=== PATIENT | male | born 1955 | race Caucasian/White ===

== ENCOUNTER 2016-05-01 11:03 | Inpatient (IN) | payer OTHER ==
[~2016-05-01] VITALS: Ht 172.7 cm; Wt 89.9 kg
[~2016-05-01 11:03] MED LIST: ALBINS INH; LEVA1.25 INH; OMEP40CA PO; PRED20TA PO; SNG10 PO; THEO1TAB14 PO; XOLAIR INJ
[2016-05-01 12:00] VITALS: BP 142/91; PULSE 116; TEMP 36.6; O2SAT 95; Ht 172.7 cm; Wt 89.9 kg
[2016-05-01] MEDS ORDERED: ALUMINUM/MAGNESIUM/SIMETH (MAALOX MAX) 30 ML UDC PO PRN (12:30)
[2016-05-01] MEDS ORDERED: ACETAMINOPHEN 325 MG TAB PO PRN (12:30)
[2016-05-01] MEDS ORDERED: ONDANSETRON INJ 2 MG/ML 2 ML VIAL IV PRN (12:30)
[2016-05-01] MEDS ORDERED: POLYETHYLENE (MIRALAX) 17 GM PACK PO PRN (12:30)
[2016-05-01] MEDS ORDERED: MAGNESIUM HYDROXIDE SUSP 30 ML UDC PO PRN (12:30)
[2016-05-01] MEDS ORDERED: LEVALBUTEROL 1.25MG/3ML NEB INH PRN (12:45)
[2016-05-01] MEDS ORDERED: LEVALBUTEROL 1.25MG/3ML NEB INH ONE (12:45)
[2016-05-01] MEDS ORDERED: HydrALAZINE HCL 20 MG/ML VIAL IV. PRN (12:45)
[2016-05-01] MEDS ORDERED: MOME200A INH (12:46)
[2016-05-01] MEDS ORDERED: LISI-461 PO (12:47)
[2016-05-01] MEDS ORDERED: TIOT1AER2 INH (12:51)
[2016-05-01] MEDS: METHYLPREDNISOLONE IV 40 MG in SYRINGE 0 ML IV SCH ×2 (13:13→18:36)
--- NOTE | 2016-05-01 13:52 | DIAGNOSTIC IMAGING REPORT ---
CHEST ONE VIEW PORTABLE CLINICAL HISTORY: Shortness of breath COMPARISON STUDY: February 07, 2016 FINDINGS: The cardiac and mediastinal contours are normal. There is no evidence of focal pulmonary consolidation. There is no evidence of failure. No pleural effusions are visualized.[ IMPRESSION: No active disease in the chest. Electronically signed by: Per Reid M.D. 05/01/2016 1:50 PM Dictated Date/Time: 05/01/2016 1:50 PM
--- NOTE | 2016-05-01 14:02 | History and Physical ---
History & Physical Date & Time of Service: May 01, 2016 at 13:53 Chief Complaint: Asthmatic Exacerbation Primary Care Physician: Reji Matt M.D. History of Present Illness Source: patient Mr. Adan is a 60 y/o male with a PMHx of Severe Persistent Extrinsic Asthma, Allergic Rhinitis, HTN, CAROLINE, and GERD who is a direct admission from Dr. Oh' s office due to persistent asthma exacerbation. He reports that prior to he has had well controlled asthma. Since he has had multiple Prednisone tapers and antibiotic treatment that did not seem to completely resolve his symptoms but was more manageable. During this month he notes increased nasal congestion and a productive cough. This cough was initially productive of green/yellow sputum and he was treated with a Z-usama and Prednisone taper that he finished today. He reports that his sputum is now clear but still reporting wheezing and MUÑIZ. 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 He has been using his Xopenex nebulizer nearly every hour without significant relief. He also has been utilizing his rescue inhaler 2-3 times at night. Associated intermittent nose bleeds and hemoptysis. He reports multiple sick contacts at work. Denies direct knowledge of triggers of his asthma but does report a mold/environmental allergy. He denies fever/chills, CP, N/V, abdominal pain, dysuria, constipation/ diarrhea. Social History Smoking Status: Never Smoker Smokeless Tobacco Use: No Alcohol Use: 1-2 glasses bourban Drug Use: none Immunizations History of Influenza Vaccine: No History of Tetanus Vaccine?: Yes History of Pneumococcal: Unknown History of Hepatitis B Vaccine: Yes Multi-Drug Resistant Organisms History of MDRO: No Allergies Coded Allergies: No Known Drug Allergy (Verified Allergy, Unknown, ., 03/09/10) Home Medications Scheduled Albuterol 0.083% Soln (Ventolin 0.083% Soln *), 1 AMP INH Q4HR PRN Levalbuterol Soln (Xopenex 1.25MG/3ML), 1.25 MG INH BID Lisinopril (Zestril), 10 MG PO DAILY Mometasone Furoate-Formoterol (Dulera 200/5 Mcg), 2 PUFFS INH BID Montelukast (Singulair *), 10 MG PO DHS Omeprazole (Prilosec), 40 MG PO DAILY Prednisone (Prednisone), 20 MG PO DIRECTED Theophylline Ext Rel (Tyrell-Dur Ext Rel), 300 MG PO BID Tiotropium [place] Monohydrate (Spiriva Respimat), 2 PUFFS INH QPM Review of Systems Constitutional: No chills, No fever Eyes: No worsening of vision ENT: + nasal symptoms, No sore throat, No trouble swallowing Respiratory: + cough, + dyspnea on exertion, + hemoptysis (minimal), + sputum ( green/yellow and now clear), + wheezing, No dyspnea at rest Cardiovascular: No chest pain Abdomen: No constipation, No diarrhea, No nausea, No pain, No vomiting Musculoskeletal: No calf pain, No swelling Genitourinary - Male: No dysuria Hematologic / Lymphatic: No abnormal bleeding/bruising, No clotting problems Integumentary: No rash Allergic / Immunologic: + environmental allergies Physical Exam Vital Signs Date Time Temp Pulse Resp B/P Pulse Ox O2 Delivery O2 Flow Rate FiO2 05/01/16 12:00 36.6 116 18 142/91 95 Room Air General Appearance: WD/WN, no apparent distress Head: normocephalic, atraumatic Eyes: sclerae normal ENT: hearing grossly normal, pharynx normal Neck: supple, no JVD, trachea midline Respiratory/Chest: no respiratory distress, no accessory muscle use, + wheezing (diffuse in all lung higgins; poor airway movement) Cardiovascular: no gallop, no murmur, + tachycardia Abdomen/GI: normal bowel sounds, non tender, soft Back: normal inspection, no CVA tenderness Extremities/Musculoskelatal: no calf tenderness, no pedal edema Neurologic/Psych: alert, oriented x 3 Skin: normal color, warm/dry Diagnostics Laboratory Results Results Past 24 Hours Test 05/01/16 12:34 05/01/16 12:39 Range/Units Diagnostic Radiology CHEST ONE VIEW PORTABLE CLINICAL HISTORY: Shortness of breath COMPARISON STUDY: February 07, 2016 FINDINGS: The cardiac and mediastinal contours are normal. There is no evidence of focal pulmonary consolidation. There is no evidence of failure. No pleural effusions are visualized.[ IMPRESSION: No active disease in the chest. Impression Assessment and Plan Mr. Adan is a 60 y/o male with a PMHx of Severe Persistent Extrinsic Asthma, Allergic Rhinitis, HTN, CAROLINE, and GERD who is a direct admission from Dr. Oh' s office due to persistent asthma exacerbation. Acute Asthma Exacerbation: Recent Z-Usama and Prednisone Taper - Will defer further antibiotic therapy at this time - CXR - image and report reviewed - no evidence of focal consolidation or fluid overload - Atrovent and Xopenex Q6H and PRN - Methylprednisone 40 mg IV Q6H - Theophylline 300 ER 300 mg BID - Singulair 10 mg HS - Flutter valve and incentive spirometry Glucose Control: - Due to frequent steroid use and current IV therapy will monitor BSG AC and HS - Can add insulin coverage if necessary Allergic Rhinitis: - Flonase nasal spray - Can consider allergy medication if symptoms more bothersome HTN: - Lisinopril 10 mg daily - denies chronic cough related to this medication - will monitor - Hydralazine 10 mg PRN GERD: - Protonix 40 mg daily as Prilosec interchange DVT Prophylaxis: - Lovenox 40 mg SC daily Code Status: - FULL RESUSCITATION Disposition: - Return home when medically stable Level of Care Med/Surg Advanced Directives Existing Living Will: No Existing Power of Equine Pharmacology Technician: No Resuscitation Status FULL RESUSCITATION VTE Prophylaxis VTE Risk Assessment Done? Y/N: Yes Risk Level: Moderate Given or contraindicated: Enoxaparin (Lovenox)SQ Reviewed: Pt Seen/Exam by Me, RN Notes, HO Notes, Prior Records History I agree with PA H&P Mr. Adan is a 60 y/o male with a PMHx of Severe Persistent Extrinsic Asthma, Allergic Rhinitis, HTN, CAROLINE, and GERD who is a direct admission from Dr. Oh' s office due asthma exacerbation Constitutional: denies: chills Respiratory: positive: wheezing, negative: cough Cardiovascular: denies chest pain Gastrointestinal/Abdominal: negative: abdominal pain Musculoskeletal: negative: back pain Neurological/Psych: negative: anxiety Hematologic/Lymphatic: negative: anemia General Appearance: WD/WN Eye Exam: bilateral eye normal inspection Ears, Nose, Throat: hearing grossly normal Neck: non-tender, supple Respiratory: chest non-tender, no accessory muscle use, wheezing Cardiovascular: regular rate, rhythm, no gallop Gastrointestinal: normal bowel sounds, soft Extremities: normal range of motion, normal inspection Neurologic/Psychiatric: alert, normal mood/affect Skin Characteristics: normal color Assessment/Plan Mr. Adan is a 60 y/o male with a PMHx of Severe Persistent Extrinsic Asthma, Allergic Rhinitis, HTN, CAROLINE, and GERD who is a direct admission from Dr. Oh' s office due to persistent asthma exacerbation. Acute Asthma Exacerbation: Recent Z-Usama and Prednisone Taper GMF CXR - image and report reviewed - no evidence of focal consolidation or fluid overload -Atrovent and Xopenex Q6H and PRN cont Methylprednisone 40 mg IV Q6H cont Theophylline 300 ER 300 mg BID cont Singulair 10 mg HS cont Flutter valve and incentive spirometry Allergic Rhinitis: cont Flonase nasal spray HTN: cont Lisinopril 10 mg daily - denies chronic cough related to this medication Hydralazine 10 mg PRN GERD: Protonix 40 mg daily as Prilosec outpt DVT Prophylaxis: Lovenox 40 mg SC daily FULL RESUSCITATION case discussed with DEANDRE Ayala time spent 50 min
[2016-05-01 14:29] VITALS: PULSE 88; O2SAT 97
[2016-05-01] MEDS: LEVALBUTEROL 1.25MG/3ML NEB INH SCH ×2 (14:29→19:29)
[2016-05-01] MEDS: IPRATROPIUM BROMIDE NEB SOLN 0.02% 2.5 ML VIAL INH SCH ×2 (14:29→19:28)
[2016-05-01 15:30] LABS: PROTHROMBIN TIME (PATIENT) 10.9 SECONDS (9.0-12.0)
[2016-05-01 15:47] LABS: BUN/CREATININE RATIO 14.1 (10-20); CALCIUM 8.8 mg/dl (8.5-10.1); CREATININE 1.5 mg/dl (0.60-1.40); MAGNESIUM 2.2 mg/dl (1.8-2.4); POTASSIUM 4.5 mmol/L (3.5-5.1)
[2016-05-01 15:57] VITALS: BP 149/96; PULSE 79; TEMP 36.9; O2SAT 94
[2016-05-01 16:00] VITALS: O2SAT 94
[2016-05-01] MEDS ORDERED: GLUCAGON FOR INJ 1 MG VIAL SQ PRN (16:00)
[2016-05-01] MEDS ORDERED: GLUCOSE 10 TABS/TUBE PO PRN (16:00)
[2016-05-01] MEDS ORDERED: GLUCOSE 40% GEL 15 GM TUBE PO PRN (16:00)
[2016-05-01] MEDS ORDERED: DEXTROSE 50% 50 ML SYR IV PRN (16:00)
[2016-05-01] MEDS: SODIUM CHLORIDE 0.9% 1000ML 1,000 ML IV SCH (16:05)
[2016-05-01] MEDS: ENOXAPARIN 40 MG/0.4 ML SYR SQ SCH (16:19)
[2016-05-01] MEDS ORDERED: INSULIN ASPART 100 UNITS/ML 3 ML PEN SC SCH (16:30)
[2016-05-01 17:47] LABS: BASO % 0.4 %; BASO ABS # 0.03 K/uL (0-0.2); COMPLETE YES; EOS % 0.3 %; HEMATOCRIT 44.2 % (42-52); IG% 1.2 %; LYMPH % 8.1 %; LYMPH ABS # 0.62 K/uL (1.2-3.4); MEAN CORPUSCULAR HEMOGLOBIN 30.1 pg (25-34); MEAN CORPUSCULAR HGB CONC 34.2 g/dl (32-36); MEAN PLATELET VOLUME 10.6 fL (7.4-10.4); PLATELET COUNT 224 K/uL (130-400); RED BLOOD COUNT 5.02 M/uL (4.7-6.1); WHITE BLOOD COUNT 7.61 K/uL (4.8-10.8)
[2016-05-01] MEDS: FLUTICASONE PROPIONATE NA SPR 16 GM BTL SCH (19:17)
[2016-05-01] MEDS: MONTELUKAST SOD 10 MG TAB PO SCH (19:17)
[2016-05-01] MEDS: THEOPHYLLINE 300MG EXTENDED REL TAB PO SCH (19:17)
[2016-05-01 19:29] VITALS: PULSE 80; O2SAT 96
[2016-05-01 23:40] VITALS: BP 144/88; PULSE 81; TEMP 37; O2SAT 96
[2016-05-02] VITALS (8 sets, daily range): BP systolic 151–176; BP diastolic 83–106; PULSE 87–98; TEMP 36.5–36.7; O2SAT 93–97
[2016-05-02] MEDS: METHYLPREDNISOLONE IV 40 MG in SYRINGE 0 ML IV SCH ×4 (01:24→19:29)
[2016-05-02] MEDS: SODIUM CHLORIDE 0.9% 1000ML 1,000 ML IV SCH (01:24)
[2016-05-02] MEDS: LEVALBUTEROL 1.25MG/3ML NEB INH SCH ×4 (02:46→20:48)
[2016-05-02] MEDS: IPRATROPIUM BROMIDE NEB SOLN 0.02% 2.5 ML VIAL INH SCH ×4 (02:46→20:48)
[2016-05-02] MEDS: THEOPHYLLINE 300MG EXTENDED REL TAB PO SCH ×2 (07:54→19:32)
[2016-05-02] MEDS: FLUTICASONE PROPIONATE NA SPR 16 GM BTL SCH ×2 (07:54→19:32)
[2016-05-02] MEDS: LISINOPRIL 10 MG TAB PO SCH (07:54)
[2016-05-02] MEDS: PANTOprazole SOD 40 MG TAB PO SCH (07:54)
[2016-05-02 09:06] LABS: HEMATOCRIT 43.6 % (42-52); MEAN CELL VOLUME 86.3 fL (80-100); MEAN CORPUSCULAR HEMOGLOBIN 30.5 pg (25-34); MEAN CORPUSCULAR HGB CONC 35.3 g/dl (32-36); PLATELET COUNT 220 K/uL (130-400); RED BLOOD COUNT 5.05 M/uL (4.7-6.1); WHITE BLOOD COUNT 8.21 K/uL (4.8-10.8)
[2016-05-02 09:25] LABS: BUN/CREATININE RATIO 20.3 (10-20); CALCIUM 8.7 mg/dl (8.5-10.1); CREATININE 1.2 mg/dl (0.60-1.40); MAGNESIUM 2.3 mg/dl (1.8-2.4); POTASSIUM 4.1 mmol/L (3.5-5.1)
[2016-05-02 09:28] LABS: ALB/GLOB RATIO 0.9 (0.9-2)
[2016-05-02] MEDS ORDERED: LORATADINE 10 MG TAB PO ONE (10:00)
--- NOTE | 2016-05-02 10:05 | Progress Note ---
Subjective Date of Service: May 02, 2016. (Collette Ayala PA-C) Date of Service: 05/02/16 improved (Rai Valdivia MD) Subjective Pt evaluation today including: conversation w/ patient, physical exam, chart review, lab review, review of studies, review of inpatient medication list Patient seen and evaluated. No acute events overnight. Reports some improvement in symptoms and feels that he is moving air better. Continues to have nasal congestion. Reports that he has received allergy injections in the past but doesn't use oral allergy meds. Verbalizes no other complaints. (Collette Ayala PA-C) Pt evaluation today including: conversation w/ patient, physical exam, chart review, review of studies, review of inpatient medication list (Rai Valdivia MD) Review of Systems Constitutional: No chills, No fever Respiratory: + cough, + dyspnea on exertion, + sputum, + wheezing, No dyspnea at rest Cardiac: No chest pain Abdomen: No nausea, No pain, No vomiting Male : No dysuria Skin: No rash (Collette Ayala PA-C) Constitutional: No fever ENT: No hearing loss Respiratory: + wheezing, No cough Cardiac: No chest pain Abdomen: No pain Male : No dysuria Neurologic: No memory loss Endo: No fatigue (Rai Valdivia MD) Medications Current Inpatient Medications Medications (Trade) Dose Ordered Sig/Becky Route Start Time Stop Time Status Last Admin Dose Admin Enoxaparin Sodium (Lovenox Inj) 40 mg DAILY@1600 SQ 05/01/16 16:00 05/31/16 15:59 05/01/16 16:19 40 MG Acetaminophen (Tylenol Tab) 650 mg Q4H PRN PO 05/01/16 12:30 05/31/16 12:29 Al Hydrox/Mg Hydrox/Simethicone (Maalox Max Susp) 15 ml Q4H PRN PO 05/01/16 12:30 05/31/16 12:29 Magnesium Hydroxide (Milk Of Magnesia Susp) 30 ml Q6H PRN PO 05/01/16 12:30 05/31/16 12:29 Polyethylene (Miralax Powder Packet) 17 gm DAILY PRN PO 05/01/16 12:30 05/31/16 12:29 Ondansetron HCl 4 mg 4 mg Q6H PRN IV 05/01/16 12:30 05/31/16 12:29 Methylprednisolone Sodium Succinate/ Syringe (Solu-Medrol IV/ Syringe) 0.64 ml @ 1.5 mls/min Q6H IV 05/01/16 13:00 05/31/16 12:59 05/02/16 06:24 1.5 MLS/MIN Ipratropium [place] (Atrovent 0.02% 0.5MG/2.5ML Neb) 0.5 mg Q6R INH 05/01/16 15:00 05/31/16 14:59 05/02/16 07:23 0.5 MG Levalbuterol (Xopenex 1.25MG/ 3ML Neb) 1.25 mg Q6R INH 05/01/16 15:00 05/31/16 14:59 05/02/16 07:23 1.25 MG Levalbuterol (Xopenex 1.25MG/ 3ML Neb) 1.25 mg Q2H PRN INH 05/01/16 12:45 05/31/16 12:44 Montelukast Sodium (Singulair Tab) 10 mg HS PO 05/01/16 22:00 05/31/16 21:59 05/01/16 19:17 10 MG Theophylline (Tyrell-Dur Extended Rel Tab) 300 mg BID PO 05/01/16 20:00 05/31/16 19:59 05/02/16 07:54 300 MG Pantoprazole Sodium (Protonix Tab) 40 mg QAM PO 05/02/16 08:00 06/01/16 07:59 05/02/16 07:54 40 MG Hydralazine HCl (HydrALAZINE INJ) 10 mg Q6 PRN IV. 05/01/16 12:45 05/31/16 12:44 Lisinopril (Zestril Tab) 10 mg DAILY PO 05/02/16 08:00 06/01/16 07:59 05/02/16 07:54 10 MG Fluticasone Propionate (Flonase Nasal [place]) 1 sprays BID NA 05/01/16 20:00 05/31/16 19:59 05/02/16 07:54 1 SPRAYS (Collette Ayala, PA-C) Objective Vital Signs Date Time Temp Pulse Resp B/P Pulse Ox O2 Delivery O2 Flow Rate FiO2 05/02/16 08:00 94 Room Air 05/02/16 07:47 36.5 88 20 176/106 94 Room Air 05/02/16 07:23 98 16 93 Room Air 05/02/16 02:46 89 16 97 Room Air 05/02/16 00:01 Room Air 05/01/16 23:40 37.0 81 18 144/88 96 Room Air 05/01/16 19:29 80 96 Room Air 05/01/16 19:15 Room Air 05/01/16 16:00 94 Room Air 05/01/16 15:57 36.9 79 18 149/96 94 Room Air 05/01/16 14:29 88 97 Room Air 05/01/16 12:00 36.6 116 18 142/91 95 Room Air (Collette Aayla PA-C) Physical Exam General Appearance: WD/WN, no apparent distress Eyes: sclerae normal ENT: hearing grossly normal Neck: supple, no JVD, trachea midline Respiratory/Chest: no respiratory distress (unlabored), no accessory muscle use , + wheezing (diffuse; expiratory), + pertinent finding (improvement in airflow in all lung higgins) Cardiovascular: regular rate, rhythm, no gallop, no murmur Abdomen: normal bowel sounds, non tender, soft Extremities: no pedal edema, no calf tenderness Neurologic/Psychiatric: alert, oriented x 3 Skin: normal color, warm/dry (Collette Ayala, PA-C) General Appearance: WD/WN, no apparent distress Eyes: normal inspection, EOMI ENT: pharynx normal Neck: supple Respiratory/Chest: chest non-tender, + wheezing Cardiovascular: regular rate, rhythm, no gallop Abdomen: non tender, no organomegaly Extremities: non-tender, normal inspection Neurologic/Psychiatric: no motor/sensory deficits, normal mood/affect Skin: normal color, warm/dry (Rai Valdivia MD) Laboratory Results Last 24 Hours Test 05/01/16 15:07 05/01/16 16:57 05/01/16 20:06 05/02/16 08:02 White Blood Count 7.61 K/uL Red Blood Count 5.02 M/uL Hemoglobin 15.1 g/dL Hematocrit 44.2 % Mean Corpuscular Volume 88.0 fL Mean Corpuscular Hemoglobin 30.1 pg Mean Corpuscular Hemoglobin Concent 34.2 g/dl Platelet Count 224 K/uL Mean Platelet Volume 10.6 fL Neutrophils (%) (Auto) 84.0 % Lymphocytes (%) (Auto) 8.1 % Monocytes (%) (Auto) 6.0 % Eosinophils (%) (Auto) 0.3 % Basophils (%) (Auto) 0.4 % Neutrophils # (Auto) 6.39 K/uL Lymphocytes # (Auto) 0.62 K/uL Monocytes # (Auto) 0.46 K/uL Eosinophils # (Auto) 0.02 K/uL Basophils # (Auto) 0.03 K/uL RDW Standard Deviation 42.4 fL RDW Coefficient of Variation 13.2 % Immature Granulocyte % (Auto) 1.2 % Immature Granulocyte # (Auto) 0.09 K/uL Prothrombin Time 10.9 SECONDS Prothromb Time International Ratio 1.0 Sodium Level 138 mmol/L Potassium Level 4.5 mmol/L Chloride Level 105 mmol/L Carbon Dioxide Level 25 mmol/L Anion Gap 8.0 mmol/L Blood Urea Nitrogen 21 mg/dl Creatinine 1.50 mg/dl Est Creatinine Clear Calc Drug Dose 59.7 ml/min Estimated GFR () 58.6 Estimated GFR (Non- 50.6 BUN/Creatinine Ratio 14.1 Random Glucose 193 mg/dl Calcium Level 8.8 mg/dl Magnesium Level 2.2 mg/dl Total Bilirubin 0.5 mg/dl Aspartate Amino Transf (AST/SGOT) 38 U/L Alanine Aminotransferase (ALT/SGPT) 46 U/L Alkaline Phosphatase 58 U/L Total Protein 7.5 gm/dl Albumin 3.7 gm/dl Globulin 3.8 gm/dl Albumin/Globulin Ratio 1.0 Bedside Glucose 153 mg/dl 190 mg/dl 137 mg/dl Test 05/02/16 08:45 White Blood Count 8.21 K/uL Red Blood Count 5.05 M/uL Hemoglobin 15.4 g/dL Hematocrit 43.6 % Mean Corpuscular Volume 86.3 fL Mean Corpuscular Hemoglobin 30.5 pg Mean Corpuscular Hemoglobin Concent 35.3 g/dl RDW Standard Deviation 41.0 fL RDW Coefficient of Variation 12.9 % Platelet Count 220 K/uL Mean Platelet Volume 10.0 fL Sodium Level 133 mmol/L Potassium Level 4.1 mmol/L Chloride Level 102 mmol/L Carbon Dioxide Level 23 mmol/L Anion Gap 8.0 mmol/L Blood Urea Nitrogen 24 mg/dl Creatinine 1.20 mg/dl Est Creatinine Clear Calc Drug Dose 74.7 ml/min Estimated GFR () 76.8 Estimated GFR (Non- 66.3 BUN/Creatinine Ratio 20.3 Random Glucose 165 mg/dl Calcium Level 8.7 mg/dl Magnesium Level 2.3 mg/dl Total Bilirubin 0.7 mg/dl Aspartate Amino Transf (AST/SGOT) 33 U/L Alanine Aminotransferase (ALT/SGPT) 46 U/L Alkaline Phosphatase 56 U/L Total Protein 7.5 gm/dl Albumin 3.5 gm/dl Globulin 4.0 gm/dl Albumin/Globulin Ratio 0.9 Theophylline Level 9 mcg/ml (Collette Ayala PA-C) Assessment and Plan Mr. Adan is a 60 y/o male with a PMHx of Severe Persistent Extrinsic Asthma, Allergic Rhinitis, HTN, CAROLINE, and GERD who is a direct admission from Dr. Oh' s office due to persistent asthma exacerbation. Acute Asthma Exacerbation: Recent Z-Usama and Prednisone Taper - Will defer further antibiotic therapy at this time - Atrovent and Xopenex Q6H and PRN - Methylprednisone 40 mg IV Q6H - Theophylline 300 ER 300 mg BID - Singulair 10 mg HS - Flutter valve and incentive spirometry Glucose Control: - Due to frequent steroid use and current IV therapy will monitor BSG AC and HS - Can add coverage if needed - will defer at this time Allergic Rhinitis: - Flonase nasal spray - Will add Loratadine 10 mg daily HTN: - Lisinopril 10 mg daily - denies chronic cough related to this medication - will monitor - Hydralazine 10 mg PRN GERD: - Protonix 40 mg daily as Prilosec interchange DVT Prophylaxis: - Lovenox 40 mg SC daily Code Status: - FULL RESUSCITATION Disposition: - Hopeful discharge in 1-2 days pending improvement in respiratory symptoms Continued [facility] stay due to: multiple IV medications needed Discharge planning: home (Collette Ayala PA-C) Mr. Adan is a 60 y/o male with a PMHx of Severe Persistent Extrinsic Asthma, Allergic Rhinitis, HTN, CAROLINE, and GERD who is a direct admission from Dr. Oh' s office due to persistent asthma exacerbation. Acute Asthma Exacerbation: Recent Z-Usama and Prednisone Taper cont GMF cont Atrovent and Xopenex Q6H and PRN cont Methylprednisone 40 mg IV Q6H cont theophylline 300 ER 300 mg BID cont Singulair 10 mg HS Allergic Rhinitis: cont Flonase nasal spray HTN: Lisinopril 10 mg daily GERD: Protonix 40 mg daily DVT Prophylaxis: Lovenox 40 mg SC daily Code Status: - FULL RESUSCITATION Disposition: - Hopeful discharge in 1-2 days pending improvement in respiratory symptoms (Rai Valdivia MD)
[2016-05-02] MEDS: ENOXAPARIN 40 MG/0.4 ML SYR SQ SCH (15:35)
[2016-05-02] MEDS: MONTELUKAST SOD 10 MG TAB PO SCH (21:53)
[2016-05-03] VITALS (7 sets, daily range): BP systolic 148–160; BP diastolic 85–95; PULSE 74–106; TEMP 36.5–36.9; O2SAT 94–97
[2016-05-03] MEDS: METHYLPREDNISOLONE IV 40 MG in SYRINGE 0 ML IV SCH ×2 (00:50→06:06)
[2016-05-03] MEDS: IPRATROPIUM BROMIDE NEB SOLN 0.02% 2.5 ML VIAL INH SCH ×4 (02:05→18:12)
[2016-05-03] MEDS: LEVALBUTEROL 1.25MG/3ML NEB INH SCH ×4 (02:05→18:12)
[2016-05-03] MEDS: THEOPHYLLINE 300MG EXTENDED REL TAB PO SCH ×2 (08:24→21:21)
[2016-05-03] MEDS: PANTOprazole SOD 40 MG TAB PO SCH (08:24)
[2016-05-03] MEDS: LORATADINE 10 MG TAB PO SCH (08:24)
[2016-05-03] MEDS: LISINOPRIL 10 MG TAB PO SCH (08:24)
[2016-05-03] MEDS: FLUTICASONE PROPIONATE NA SPR 16 GM BTL SCH ×2 (08:25→21:21)
[2016-05-03 08:37] LABS: BUN/CREATININE RATIO 20.5 (10-20); CREATININE 1.2 mg/dl (0.60-1.40); POTASSIUM 3.9 mmol/L (3.5-5.1)
[2016-05-03] MEDS: METHYLPREDNISOLONE IV 60 MG in SYRINGE 0 ML IV SCH ×2 (13:42→19:07)
--- NOTE | 2016-05-03 14:03 | Progress Note ---
Subjective Date of Service: May 03, 2016. (Collette Ayala PA-C) Date of Service: 05/03/16 agree with PA note still wheezing (Rai Valdivia MD) Subjective Pt evaluation today including: conversation w/ patient, physical exam, lab review, conversation w/ information services consultant (Aj Faith PA-C), review of inpatient medication list Patient seen and evaluated. No acute events overnight. Feels mild improvement in symptoms but not at baseline. Cough is minimall productive. Discussed with Aj Faith PA-C as past exacerbations were hard to control -- Had improvement with Xolair that he recently stopped 6 months ago -- Reports previous needs for bronchs due to mucus plugging and may be necessary (Collette Ayala PA-C) Pt evaluation today including: conversation w/ patient, physical exam, chart review, review of studies, review of inpatient medication list (Rai Valdivia MD) Review of Systems Constitutional: No chills, No fever ENT: + nasal symptoms Respiratory: + cough, + shortness of breath, + sputum (minimally productive) Cardiac: No chest pain Abdomen: No nausea, No pain, No vomiting Musculoskeletal: No calf pain, No swelling Male : No dysuria Skin: No itch, No rash (Collette Ayala PA-C) Constitutional: No fever ENT: No hearing loss Respiratory: + shortness of breath, + wheezing, No cough Abdomen: No pain Male : No dysuria Neurologic: No memory loss Psychiatric: No depression symptoms (Rai Valdivia MD) Objective Vital Signs Date Time Temp Pulse Resp B/P Pulse Ox O2 Delivery O2 Flow Rate FiO2 05/03/16 08:07 95 14 95 Room Air 05/03/16 08:00 94 Room Air 05/03/16 07:30 36.5 92 18 154/95 94 Room Air 05/03/16 00:04 36.9 74 20 148/94 96 Room Air 05/03/16 00:01 Room Air 05/02/16 20:48 90 14 96 Room Air 05/02/16 16:20 Room Air 05/02/16 15:27 36.7 87 20 157/83 95 Room Air 05/02/16 14:29 98 16 95 Room Air (Collette Ayala PA-C) Last 24 Hours Test 05/02/16 16:54 05/02/16 20:10 05/03/16 07:33 05/03/16 07:45 Bedside Glucose 165 mg/dl 176 mg/dl 132 mg/dl Sodium Level 133 mmol/L Potassium Level 3.9 mmol/L Chloride Level 101 mmol/L Carbon Dioxide Level 24 mmol/L Anion Gap 8.0 mmol/L Blood Urea Nitrogen 25 mg/dl Creatinine 1.20 mg/dl Est Creatinine Clear Calc Drug Dose 74.7 ml/min Estimated GFR () 76.8 Estimated GFR (Non- 66.3 BUN/Creatinine Ratio 20.5 Random Glucose 139 mg/dl Calcium Level 9.0 mg/dl Test 05/03/16 11:37 Bedside Glucose 130 mg/dl (Rai Valdivia MD) Physical Exam General Appearance: WD/WN, no apparent distress Eyes: sclerae normal ENT: hearing grossly normal Neck: supple, no JVD, trachea midline Respiratory/Chest: no respiratory distress, no accessory muscle use, + wheezing (expiratory; course breath sounds; improvement in airflow quality compared to previous exams) Cardiovascular: regular rate, rhythm, no gallop, no murmur Abdomen: normal bowel sounds, non tender, soft Extremities: no pedal edema, no calf tenderness Neurologic/Psychiatric: alert, oriented x 3 Skin: normal color, warm/dry (Collette Ayala, PA-C) General Appearance: WD/WN, no apparent distress Eyes: normal inspection, EOMI ENT: hearing grossly normal, pharynx normal Neck: supple, no JVD Respiratory/Chest: + wheezing Cardiovascular: regular rate, rhythm, no JVD Abdomen: normal bowel sounds, non tender Extremities: normal range of motion, normal inspection Neurologic/Psychiatric: alert, normal mood/affect Skin: warm/dry (Rai Valdivia MD) Laboratory Results Last 24 Hours Test 05/02/16 16:54 05/02/16 20:10 05/03/16 07:33 05/03/16 07:45 Bedside Glucose 165 mg/dl 176 mg/dl 132 mg/dl Sodium Level 133 mmol/L Potassium Level 3.9 mmol/L Chloride Level 101 mmol/L Carbon Dioxide Level 24 mmol/L Anion Gap 8.0 mmol/L Blood Urea Nitrogen 25 mg/dl Creatinine 1.20 mg/dl Est Creatinine Clear Calc Drug Dose 74.7 ml/min Estimated GFR () 76.8 Estimated GFR (Non- 66.3 BUN/Creatinine Ratio 20.5 Random Glucose 139 mg/dl Calcium Level 9.0 mg/dl Test 05/03/16 11:37 Bedside Glucose 130 mg/dl (Collette Ayala PA-C) Assessment and Plan Mr. Adan is a 60 y/o male with a PMHx of Severe Persistent Extrinsic Asthma, Allergic Rhinitis, HTN, CAROLINE, and GERD who is a direct admission from Dr. Oh' s office due to persistent asthma exacerbation. Acute Asthma Exacerbation: Recent Z-Usama and Prednisone Taper - Will defer further antibiotic therapy at this time - Atrovent and Xopenex Q6H and PRN - Increase to Methylprednisone 60 mg IV Q6H - Theophylline 300 ER 300 mg BID - Singulair 10 mg HS - Mucinex 1200 mg Q12H - Flutter valve and incentive spirometry and will add vibration vest Glucose Control: - Due to frequent steroid use and current IV therapy will monitor BSG AC and HS - Can add coverage if needed - will defer at this time - Can D/C BSG checks pending sugars after increase in steroid Allergic Rhinitis: - Flonase nasal spray - Loratadine 10 mg daily HTN: - Lisinopril 10 mg daily - denies chronic cough related to this medication - will monitor - Hydralazine 10 mg PRN GERD: - Protonix 40 mg daily as Prilosec interchange DVT Prophylaxis: - Lovenox 40 mg SC daily Code Status: - FULL RESUSCITATION Disposition: - Discussed case with Aj Faith PA-C who reports that his asthma exac. can be challenging -- H/O bronchoscopy needed for mucus plugging and may be necessary - Will utilize vibration vest and monitor with steroid increase - may need to involve Pulm as limited improvement noted. Continued [facility] stay due to: multiple IV medications needed Discharge planning: home (Collette Ayala PA-C) Mr. Adan is a 60 y/o male with a PMHx of Severe Persistent Extrinsic Asthma, Allergic Rhinitis, HTN, CAROLINE, and GERD who is a direct admission from Dr. Oh' s office due to persistent asthma exacerbation. Acute Asthma Exacerbation: Recent Z-Usama and Prednisone Taper cont Atrovent and Xopenex Q6H and PRN Increased to Methylprednisone 60 mg IV Q6H continue Theophylline 300 ER 300 mg BID Singulair 10 mg HS Mucinex 1200 mg Q12H Flutter valve and incentive spirometry and will add vibration vest Allergic Rhinitis: Flonase nasal spray Loratadine 10 mg daily HTN: Lisinopril 10 mg daily - denies chronic cough related to this medication - will monitor cont iv Hydralazine 10 mg PRN GERD: Protonix 40 mg daily DVT Prophylaxis: Lovenox 40 mg SC daily FULL RESUSCITATION Discussed case with Aj Faith PA-C who reports that his asthma exac. can be challenging bronchoscopy may be needed for mucus plugging and may be necessary if does not improve Will utilize vibration vest and monitor with steroid increase (Rai Valdivia MD)
[2016-05-03] MEDS: ENOXAPARIN 40 MG/0.4 ML SYR SQ SCH (15:59)
[2016-05-03] MEDS: GUAIFENESIN 600 MG TABCR PO SCH (21:20)
[2016-05-03] MEDS: MONTELUKAST SOD 10 MG TAB PO SCH (21:20)
[2016-05-04 00:14] VITALS: BP 144/88; PULSE 74; TEMP 36.4; O2SAT 94
[2016-05-04] MEDS: METHYLPREDNISOLONE IV 60 MG in SYRINGE 0 ML IV SCH ×4 (00:53→20:07)
[2016-05-04] MEDS: IPRATROPIUM BROMIDE NEB SOLN 0.02% 2.5 ML VIAL INH SCH ×4 (01:45→19:15)
[2016-05-04] MEDS: LEVALBUTEROL 1.25MG/3ML NEB INH SCH ×4 (01:45→19:15)
[2016-05-04 07:26] VITALS: BP 152/55; PULSE 98; TEMP 36.4; O2SAT 96
[2016-05-04 07:44] LABS: HEMATOCRIT 45.9 % (42-52); MEAN CELL VOLUME 86.4 fL (80-100); MEAN CORPUSCULAR HEMOGLOBIN 30.5 pg (25-34); MEAN CORPUSCULAR HGB CONC 35.3 g/dl (32-36); MEAN PLATELET VOLUME 10.6 fL (7.4-10.4); PLATELET COUNT 286 K/uL (130-400); RED BLOOD COUNT 5.31 M/uL (4.7-6.1); WHITE BLOOD COUNT 22.35 K/uL (4.8-10.8)
[2016-05-04 07:48] VITALS: PULSE 96; O2SAT 96
[2016-05-04] MEDS: PANTOprazole SOD 40 MG TAB PO SCH (07:59)
[2016-05-04] MEDS: THEOPHYLLINE 300MG EXTENDED REL TAB PO SCH ×2 (07:59→20:08)
[2016-05-04] MEDS: GUAIFENESIN 600 MG TABCR PO SCH ×2 (08:00→21:41)
[2016-05-04] MEDS: LISINOPRIL 10 MG TAB PO SCH (08:00)
[2016-05-04] MEDS: FLUTICASONE PROPIONATE NA SPR 16 GM BTL SCH ×2 (08:00→20:08)
[2016-05-04] MEDS: LORATADINE 10 MG TAB PO SCH (08:18)
[2016-05-04 08:19] LABS: CREATININE 1.3 mg/dl (0.60-1.40)
--- NOTE | 2016-05-04 10:03 | Progress Note ---
Subjective Date of Service: May 04, 2016. (Collette Ayala PA-C) Subjective Pt evaluation today including: conversation w/ patient, physical exam, chart review, lab review, review of inpatient medication list Patient seen and evaluated. Ambulating the halls and does not look in resp. distress. Reports limited improvement in overall symptoms. Feels secretions have loosened up some. Remains to have course breath sounds and expiratory wheezing. Plan for bronchoscopy tomorrow AM. (Collette Ayala PA-C) Review of Systems Constitutional: No chills, No fever Respiratory: + cough, + dyspnea on exertion, + wheezing, No sputum Cardiac: No chest pain Abdomen: No nausea, No pain, No vomiting Male : No dysuria Endo: No fatigue Skin: No rash (Collette Ayala PA-C) Medications Current Inpatient Medications Medications (Trade) Dose Ordered Sig/Becky Route Start Time Stop Time Status Last Admin Dose Admin Enoxaparin Sodium (Lovenox Inj) 40 mg DAILY@1600 SQ 05/01/16 16:00 05/31/16 15:59 05/03/16 15:59 40 MG Acetaminophen (Tylenol Tab) 650 mg Q4H PRN PO 05/01/16 12:30 05/31/16 12:29 Al Hydrox/Mg Hydrox/Simethicone (Maalox Max Susp) 15 ml Q4H PRN PO 05/01/16 12:30 05/31/16 12:29 Magnesium Hydroxide (Milk Of Magnesia Susp) 30 ml Q6H PRN PO 05/01/16 12:30 05/31/16 12:29 Polyethylene (Miralax Powder Packet) 17 gm DAILY PRN PO 05/01/16 12:30 05/31/16 12:29 Ondansetron HCl (Zofran Inj) 4 mg Q6H PRN IV 05/01/16 12:30 05/31/16 12:29 Ipratropium [place] (Atrovent 0.02% 0.5MG/2.5ML Neb) 0.5 mg Q6R INH 05/01/16 15:00 05/31/16 14:59 05/04/16 07:48 0.5 MG Levalbuterol (Xopenex 1.25MG/ 3ML Neb) 1.25 mg Q6R INH 05/01/16 15:00 05/31/16 14:59 05/04/16 07:48 1.25 MG Levalbuterol (Xopenex 1.25MG/ 3ML Neb) 1.25 mg Q2H PRN INH 05/01/16 12:45 05/31/16 12:44 Montelukast Sodium (Singulair Tab) 10 mg HS PO 05/01/16 22:00 05/31/16 21:59 05/03/16 21:20 10 MG Theophylline ([place]rell-Dur Extended Rel Tab) 300 mg BID PO 05/01/16 20:00 05/31/16 19:59 05/04/16 07:59 300 MG Pantoprazole Sodium (Protonix Tab) 40 mg QAM PO 05/02/16 08:00 06/01/16 07:59 05/04/16 07:59 40 MG Hydralazine HCl (HydrALAZINE INJ) 10 mg Q6 PRN IV. 05/01/16 12:45 05/31/16 12:44 Lisinopril (Zestril Tab) 10 mg DAILY PO 05/02/16 08:00 06/01/16 07:59 05/04/16 08:00 10 MG Fluticasone Propionate (Flonase Nasal [place]) 1 sprays BID NA 05/01/16 20:00 05/31/16 19:59 05/04/16 08:00 1 SPRAYS Loratadine 10 mg 10 mg QAM PO 05/03/16 08:00 06/02/16 07:59 05/04/16 08:18 10 MG Methylprednisolone Sodium Succinate/ Syringe (Solu-Medrol IV/ Syringe) 0.96 ml @ 1.5 mls/min Q6H IV 05/03/16 13:00 06/02/16 12:59 05/04/16 06:26 1.5 MLS/MIN Guaifenesin 1200 mg 1,200 mg Q12 PO 05/03/16 21:00 06/02/16 20:59 05/04/16 08:00 1,200 MG Methylprednisolone Sodium Succinate/ Syringe (Solu-Medrol IV/ Syringe) 1.28 ml @ 1.5 mls/min ONE ONCE IV 05/05/16 07:00 05/05/16 07:01 UNV (Collette Ayala PA-C) Objective Vital Signs Date Time Temp Pulse Resp B/P Pulse Ox O2 Delivery O2 Flow Rate FiO2 05/04/16 07:48 96 16 96 Room Air 05/04/16 07:26 36.4 98 18 152/55 96 Room Air 05/04/16 00:14 36.4 74 20 144/88 94 Room Air 05/04/16 00:10 Room Air 05/03/16 18:12 102 16 96 Room Air 05/03/16 16:15 Room Air 05/03/16 15:40 36.6 106 20 160/85 95 Room Air 05/03/16 15:04 82 16 97 Room Air (Collette Ayala PA-C) Physical Exam General Appearance: WD/WN, no apparent distress Eyes: sclerae normal ENT: hearing grossly normal Neck: supple, no JVD, trachea midline Respiratory/Chest: no respiratory distress, no accessory muscle use, + wheezing (course breath sounds with expiratory wheezing more appreciated compared to previous exams; air flow quality continues to improve) Cardiovascular: regular rate, rhythm, no gallop, no murmur Abdomen: normal bowel sounds, non tender, soft Extremities: no pedal edema, no calf tenderness Neurologic/Psychiatric: alert, oriented x 3 Skin: normal color, warm/dry (Collette Ayala PA-C) Laboratory Results Last 24 Hours Test 05/03/16 11:37 05/03/16 16:46 05/03/16 20:28 05/04/16 07:21 Bedside Glucose 130 mg/dl 164 mg/dl 204 mg/dl White Blood Count 22.35 K/uL Red Blood Count 5.31 M/uL Hemoglobin 16.2 g/dL Hematocrit 45.9 % Mean Corpuscular Volume 86.4 fL Mean Corpuscular Hemoglobin 30.5 pg Mean Corpuscular Hemoglobin Concent 35.3 g/dl RDW Standard Deviation 40.4 fL RDW Coefficient of Variation 12.7 % Platelet Count 286 K/uL Mean Platelet Volume 10.6 fL Creatinine 1.30 mg/dl Est Creatinine Clear Calc Drug Dose 68.9 ml/min Estimated GFR () 69.7 Estimated GFR (Non- 60.1 Test 05/04/16 08:13 Bedside Glucose 137 mg/dl (Collette Ayala PA-C) Assessment and Plan Mr. Adan is a 60 y/o male with a PMHx of Severe Persistent Extrinsic Asthma, Allergic Rhinitis, HTN, CAROLINE, and GERD who is a direct admission from Dr. Oh' s office due to persistent asthma exacerbation. Acute Asthma Exacerbation: Recent Z-Usama and Prednisone Taper as Outpatient - Atrovent and Xopenex Q6H and PRN - Methylprednisone 60 mg IV Q6H - Theophylline 300 ER 300 mg BID - Singulair 10 mg HS - Mucinex 1200 mg Q12H - Flutter valve and incentive spirometry and will add vibration vest - Consult Pulm - Bronchoscopy tomorrow - will place NPO at midnight and Solu- Medrol 80 mg IV x 1 dose in AM Glucose Control: - Due to frequent steroid use and current IV therapy will monitor BSG AC and HS - Can add coverage if needed - will defer at this time - Can D/C BSG checks pending sugars after increase in steroid Allergic Rhinitis: - Flonase nasal spray - Loratadine 10 mg daily HTN: - Lisinopril 10 mg daily - denies chronic cough related to this medication - will monitor - Hydralazine 10 mg PRN GERD: - Protonix 40 mg daily as Prilosec interchange DVT Prophylaxis: - Lovenox 40 mg SC daily Code Status: - FULL RESUSCITATION Disposition: - Discussed case with Aj Faith PA-C (05/03) who reports that his asthma exac. can be challenging -- H/O bronchoscopy needed for mucus plugging and may be necessary - Home in 1-2 days pending on bronchoscopy tolerance Continued [facility] stay due to: multiple IV medications needed Discharge planning: home (Collette Ayala PA-C) ATTENDING ATTESTATION I have seen and examined patient this am. I have discussed plan of care in detail with MARISOL and agree with plan as stated above. Patient continues to have congestion and rhonchi Vitals-reviewed GEN- NAD CVS-RRR RESP-+ rhonchi and wheezes ABD-CTA EXT- no edema Labs-reviewed Asthma Exacerbation -pt known to pulmonary service has required bronchs in past, plan for bronch dom as I spoke with Dr. Oh this am, NPO at midnight, solumedrol 80 IV before bronch (Collette Harden MD)
[2016-05-04 13:54] VITALS: PULSE 104; O2SAT 96
[2016-05-04 16:00] VITALS: BP 157/93; PULSE 78; TEMP 36.7; O2SAT 95
[2016-05-04] MEDS: ENOXAPARIN 40 MG/0.4 ML SYR SQ SCH (16:38)
[2016-05-04 19:15] VITALS: PULSE 99; O2SAT 97
[2016-05-04] MEDS: MONTELUKAST SOD 10 MG TAB PO SCH (21:40)
[2016-05-05] VITALS (25 sets, daily range): BP systolic 138–170; BP diastolic 78–112; PULSE 69–94; TEMP 36.4–36.8; O2SAT 92–98
[2016-05-05] MEDS: METHYLPREDNISOLONE IV 60 MG in SYRINGE 0 ML IV SCH ×3 (00:57→18:39)
[2016-05-05] MEDS: IPRATROPIUM BROMIDE NEB SOLN 0.02% 2.5 ML VIAL INH SCH ×4 (01:41→19:07)
[2016-05-05] MEDS: LEVALBUTEROL 1.25MG/3ML NEB INH SCH ×4 (01:41→19:07)
[2016-05-05] MEDS ORDERED: METHYLPREDNISOLONE IV 80 MG in SYRINGE 0 ML IV ONE (07:00)
[2016-05-05] MEDS: THEOPHYLLINE 300MG EXTENDED REL TAB PO SCH ×3 (08:00→20:40)
[2016-05-05] MEDS: PANTOprazole SOD 40 MG TAB PO SCH ×2 (08:00→08:34)
[2016-05-05] MEDS: LORATADINE 10 MG TAB PO SCH ×2 (08:00→08:33)
[2016-05-05] MEDS: GUAIFENESIN 600 MG TABCR PO SCH ×3 (08:33→20:40)
[2016-05-05] MEDS: LISINOPRIL 10 MG TAB PO SCH ×2 (08:35→15:10)
[2016-05-05] MEDS: FLUTICASONE PROPIONATE NA SPR 16 GM BTL SCH ×2 (08:35→20:39)
--- NOTE | 2016-05-05 09:51 | History & Physical Bridge Note ---
H&P Re-Evaluation Bridge Note: I have examined the patient, reviewed the History & Physical and in the interval since the performance of the History & Physical I have noted the following changes of clinical significance: No changes noted
--- NOTE | 2016-05-05 09:52 | Procedure Note ---
Pre-Mod Sedation Assessment General Date of Moderate Sedation: May 05, 2016. Vital Signs: Vital Signs Past 12 Hours Date Time Temp Pulse Resp B/P Pulse Ox O2 Delivery O2 Flow Rate FiO2 05/05/16 07:53 36.7 90 18 158/92 93 Room Air 05/05/16 07:08 82 18 94 Room Air 05/05/16 01:41 69 18 96 Room Air 05/05/16 00:31 Room Air 05/05/16 00:00 36.5 83 18 145/95 95 Room Air Pre-Sedation Airway Assessment Oral Cavity: WNL Smoking Status: Never Smoker Mallampati Classification: Class II ASA Classification: Class II Procedure Planning Contraindications-for Mod Sed: None Yes Notes The planned sedation has been discussed with the patient and consent obtained. I have identified the patient, determined the appropriateness of sedation and have assessed the patient immediately prior to the procedure. All medicine(s) and interventions are by my order.
[2016-05-05] MEDS ORDERED: NURSING VERBAL MED ORDER ONE ×2 (10:15→11:45)
[2016-05-05] MEDS ORDERED: LEVALBUTEROL 1.25MG/3ML NEB INH ONE (10:30)
[2016-05-05] MEDS ORDERED: IPRATROPIUM BROMIDE NEB SOLN 0.02% 2.5 ML VIAL INH PRN (10:30)
--- NOTE | 2016-05-05 12:11 | PULMONARY CONSULTATION ---
DATE OF CONSULTATION: 05/04/2016 REASON FOR CONSULTATION: Chronic persistent asthma with hospitalizations. HISTORY OF PRESENT ILLNESS: A 60-year-old white female was admitted onto the [facility] hospitalist service by Collette Ayala, physician assistant track and field coach and Dr. Rai Valdivia. The patient's primary physician is Dr. Reji Matt and we have seen the patient in our pulmonary office for many years for chronic persistent extrinsic asthma. He also has a history of allergic rhinitis, hypertension, mild obstructive sleep apnea and GERD. He was a direct admission from my office after having seen Ailyn Delcid/physician assistant track and field coach for acute exacerbation. He states that prior to his asthma had been reasonably well controlled, but he has been on multiple courses of prednisone with taper and antibiotics without complete resolution of the symptoms. 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 Tamez for allergy evaluation. Dr. Tamez initially saw patient in consultation on 04/01/2010. At that time, the patient was 54 and did not give a previous history of allergic rhinitis or asthma symptoms. He did state that in his 20s he did have intermittent wheezing and chest congestion, but never required medication. In his 30s he started to use an inhaler p.r.n. as the symptoms worsened with exercise and as he progressed into his fifth decade his symptoms became more problematic to eventual daily basis. He had initially been tried on Singulair, Flovent and Advair and I saw him in December 2009. CAT scan of the chest performed at that time showed no acute findings. Lab studies showed at least 25% peripheral eosinophilia, the sed rate of 22 and IgE level of 96, which juany greater than 200 at its zenith. Fiberoptic bronchoscopy was done revealing although the patient did have some degree of mucoid impaction. He lives in a single family home with forced air heat. They no longer have a dog who had been there for 14 years. No significant environmental problems noted and he has in the past repaired a nonfunctioning gutter. His bedroom was carpeted, he sleeps on a mattress bed. He was diagnosed with obstructive sleep apnea in 2004 with index apnea/hypopnea index of 12.6, had been on nasal CPAP but no longer utilizing this therapy as most recent sleep study done without CPAP showed only a mild index without significant nocturnal desaturation. Problematic for him has been his ability to sleep at night and he is awakened with severe chest heaviness and shortness of breath requiring the use of metered-dose inhaler quite frequently. Percutaneous skin testing with histamine and saline control showed a 2+ reaction to both species of dust mite and was negative for other tests and antigens. His intradermal testing was negative to mold. He does have dust mite sensitivity, but did not have a history compatible with [place] vasculitis, consideration for allergen immunotherapy was given but not enacted on. He did try to reduce environmental exposure. He was introduced to Xolair therapy which he took monthly, which he believed helped cut down on his exacerbations, but has not been on the therapy for 6 months. He states he was given an equivocal response by Dr. Tamez on whether therapy was necessary at that point in time. He has been on frequent courses of prednisone although his peripheral eosinophilia is much less prominent, he noted it may be the result of his chronic steroid usage. He remains on Singulair. CAT scan of the chest last done in 2010 showed no acute abnormalities. Chest x-ray done on 02/07/2016 showed no acute infiltrates. CAT scan of the sinuses done in 2010 showed no air fluid levels, etc. PFTs done in June 2014 showed a forced vital capacity of 4.67 liters and 99% of predicted with an FEV1 of 3.7 mL 102% of predicted, with a ratio of 79%. No significant response to bronchodilator was shown. Lung volume measurement was not carried out. Echocardiogram done in 2010 showed grade 1 diastolic dysfunction with normal LV function, no sign of pulmonary hypertension. There is no smoking history or significant environmental history noted. He has received hepatitis B vaccination along with tetanus vaccination, but did not receive flu vaccination with unknown pneumococcal vaccination. He has been placed on Protonix and lisinopril daily for blood pressure response along with Flonase nasal spray, theophylline 300 mg ER b.i.d., methylprednisolone nebulized with Atrovent and Xopenex q. 6 hours and flutter valve as well as incentive spirometry and now a vibration vest. He states he is unable to bring up significant phlegm, despite all these medications and efforts. I was asked to see patient in consultation. He has been on a nebulizer with Brovana 15 mcg b.i.d. in the past along with daily Prilosec 20 mg p.o. b.i.d. and previous Xolair injections monthly along with q Qvar 80 mcg p.o. b.i.d. The patient is scheduled for bronchoscopic evaluation. Details of past medical history, medications, family and social history I refer you to current and past records. PHYSICAL EXAMINATION: GENERAL: Reveals a well-developed, well-nourished, mildly cushingoid white male in no obvious distress at rest but dyspneic after walking 20 feet in the hallway with me and sitting down. CURRENT VITAL SIGNS: Stable. SKIN: Without lesion. HEENT: Atraumatic, normocephalic. PERRLA. LUNGS: Coarse wheezes diffusely, especially at the right base. CARDIAC: Regular rate and rhythm. No murmurs or gallops. PMI nondisplaced. ABDOMEN: Soft, protuberant. No evidence of hepatosplenomegaly. EXTREMITIES: No significant pedal edema, clubbing or cyanosis. NEUROLOGIC: Intact. No lateralizing signs. LABORATORY DATA: As noted. OVERALL ASSESSMENT: A 60-year-old white male with severe persistent extrinsic asthma, allergic rhinitis, hypertension, mild obstructive sleep apnea, and gastroesophageal reflux disease with persistent exacerbations requiring admission and symptomatic since Thanksgiving refractory to aggressive outpatient as well as inpatient steroid therapy with antibiotic utilization and vigorous pulmonary toilet. I offered patient bronchoscopy with bronchoalveolar lavage as when this was done initially several years ago he felt some relief and I think at this point I think we need to be more aggressive with our approach as patient is clearly not improving. This may be the result of a viral or influenza infection that has left his airways extremely bronchospastic and poorly responsive to the above-mentioned aggressive measures. I do think patient long-term needs to go back on his Xolair therapy and the patient may very well be a candidate for a IL-5 therapy because of previous eosinophilia and poor response to current therapy. Will schedule bronchoscopic evaluation tomorrow with a prophylactic IV Solu-Medrol dose done 1 hour before along with aerosolized bronchodilator.
[2016-05-05] MEDS ORDERED: SODIUM CHLORIDE 0.9% 1000ML 1,000 ML IV SCH (12:15)
[2016-05-05] MEDS ORDERED: FENTANYL CITRATE INJ 50 MCG/1 ML 2 ML VIAL IV ONE (12:15)
[2016-05-05] MEDS ORDERED: MIDAZOLAM HCL 5 MG/ML 1 ML VIAL IV ONE (12:15)
--- NOTE | 2016-05-05 12:35 | OPERATIVE REPORT ---
DATE OF OPERATION: 05/05/2016 PROCEDURE: Fiberoptic bronchoscopy with bronchoalveolar lavage. INDICATIONS: Chronic persistent asthma/persistent allergic rhinitis, refractory to aggressive outpatient and inpatient management. ANESTHESIA PREOPERATIVELY: None. ANESTHESIA DURING PROCEDURE: 8 mg IV Versed, 100 mcg IV fentanyl, 20 mL 2% Xylocaine spray above and below the cords, 4% viscous Xylocaine intranasally. Prior to the procedure the patient received 80 mg IV Solu-Medrol 1 hour before and a nebulizer treatment of Xopenex and Atrovent 30 minutes before the procedure. The patient arrived in the bronchoscopy suite. A formal timeout was enacted. The patient was then administered 8 mg IV Versed and 100 mcg IV fentanyl. 4% viscous Xylocaine was used intranasally and 20 mL of 2% Xylocaine spray was used above and below the cords for localized analgesia. The fiberoptic bronchoscope was inserted into the right naris and copious thick mucopurulent sinus drainage was seen crusted and virtually occluding the right naris. The left naris was then explored with similar findings, but I was able to pass the scope despite profuse purulent sinus drainage emanating from the sinus ostia. The scope was then passed to the level of the true vocal cords. There was clear evidence of nasopharyngeal narrowing and loud sonorous snoring was audible prior to inserting the scope through the cords. The cords appear to approximate normally with phonation without evidence of lesions or paralysis. The scope was introduced in the trachea and the right and left tracheobronchial tree. At the car, a large amount of mucoviscous and mucopurulent secretion was adherent to the car and suctioned until clear. The right main stem bronchus was explored initially and though no endobronchial lesions were seen, virtually all lobar and segmental bronchi were virtually occluded with thick mucopurulent and mucoviscous secretion and these areas were lavaged with normosol and the aspirate sent for appropriate studies. The mucosa was extremely hemorrhagic and even after light installation of saline, there was bleeding which abated spontaneously. There was some degree of mucus pitting throughout the right tracheobronchial tree, but severe inflammatory mucosal change was seen. The left tracheobronchial tree showed similar findings with virtual occlusion of left main stem bronchus with thick mucoviscous secretion, that was lavaged with normosol and the aspirate sent for appropriate studies. Left upper lobe of the apical-posterior and anterior segments, lingual subdivision with the superior and inferior segments and the subsegmental bronchi were free of endobronchial lesions and the basilar segments of left lower lobe were found to be free of endobronchial lesions, though virtually occluded as well with thick mucoviscous and mucopurulent secretion and a very hemorrhagic underlying mucosa was seen throughout the left tracheobronchial tree. No brushings or biopsies were attempted. The procedure was eventually terminated. The patient appeared to tolerate the procedure well with only mild drop in his oximetry to 88% despite supplementation at 10 liters. At termination of the procedure he was given another nebulizer treatment with Xopenex 1.25 mg and was transferred back to the medical floor, hemodynamically stable with no signs of respiratory compromise. Will await microbiological and cytologic examination of the bronchial washings. I attest to the content of the Intraoperative Record and any orders documented therein. Any exceptio ns are noted below.
[2016-05-05] MEDS: ENOXAPARIN 40 MG/0.4 ML SYR SQ SCH (15:53)
--- NOTE | 2016-05-05 17:34 | DIAGNOSTIC IMAGING REPORT ---
CT SINUSES-MAXILLOFACIAL W/O CLINICAL HISTORY: Sinusitis, abnormal sinuses on bronchoscopy COMPARISON STUDY: 02/10/2010 TECHNIQUE: CT scan of the paranasal sinuses was performed in the axial plane. Coronal reconstructed images were obtained and reviewed. CT DOSE: 518.46 mGy.cm FINDINGS: There is no hydrocephalus. 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 The mastoid air cells are symmetrically aerated. Middle ear cavities are well aerated. There is mucosal thickening and fluid within the sphenoid sinus. There is a trace right maxillary sinus air-fluid level. There is moderate fluid and mucosal thickening within the left maxillary sinus. There is opacification of a left-sided ethmoid air cell. There is trace fluid within the frontal sinuses. The ostial and infundibular portions of the left ostiomeatal unit are occluded by soft tissue. The right ostiomeatal unit appears patent. Ethmoid infundibula and frontal recesses are patent. IMPRESSION: Pansinus disease, most severe involving the sphenoid sinus and left maxillary sinus. The ostial and infundibular portions of the left ostiomeatal unit are occluded by soft tissue. Electronically signed by: Per Reid M.D. 05/05/2016 5:33 PM Dictated Date/Time: 05/05/2016 5:30 PM
--- NOTE | 2016-05-05 17:36 | Hospitalist Progress Note ---
Hospitalist Progress Note Date of Service May 05, 2016. Subjective Pt evaluation today including: conversation w/ patient, physical exam, chart review, lab review, review of studies, review of inpatient medication list Patient had no acute issues overnight Patient had bronchoscopy today, post procedure complicated by 4 bt run of SVT Patient asymptomatic, denies any chest pain, SOB Constitutional: No fever Eyes: No worsening of vision ENT: No hearing loss Respiratory: + cough, No shortness of breath, No sputum Cardiovascular: No chest pain Abdomen: No constipation, No pain, No vomiting Musculoskeletal: No joint pain Male : No dysuria Psychiatric: No depression symptoms Endo: No fatigue Medications Current Inpatient Medications Medications (Trade) Dose Ordered Sig/Becky Route Start Time Stop Time Status Last Admin Dose Admin Enoxaparin Sodium (Lovenox Inj) 40 mg DAILY@1600 SQ 05/01/16 16:00 05/31/16 15:59 05/04/16 16:38 40 MG Acetaminophen (Tylenol Tab) 650 mg Q4H PRN PO 05/01/16 12:30 05/31/16 12:29 Al Hydrox/Mg Hydrox/Simethicone (Maalox Max Susp) 15 ml Q4H PRN PO 05/01/16 12:30 05/31/16 12:29 Magnesium Hydroxide (Milk Of Magnesia Susp) 30 ml Q6H PRN PO 05/01/16 12:30 05/31/16 12:29 Polyethylene (Miralax Powder Packet) 17 gm DAILY PRN PO 05/01/16 12:30 05/31/16 12:29 Ondansetron HCl (Zofran Inj) 4 mg Q6H PRN IV 05/01/16 12:30 05/31/16 12:29 Ipratropium [place] (Atrovent 0.02% 0.5MG/2.5ML Neb) 0.5 mg Q6R INH 05/01/16 15:00 05/31/16 14:59 05/05/16 14:06 0.5 MG Levalbuterol (Xopenex 1.25MG/ 3ML Neb) 1.25 mg Q6R INH 05/01/16 15:00 05/31/16 14:59 05/05/16 14:06 1.25 MG Levalbuterol (Xopenex 1.25MG/ 3ML Neb) 1.25 mg Q2H PRN INH 05/01/16 12:45 05/31/16 12:44 Montelukast Sodium (Singulair Tab) 10 mg HS PO 05/01/16 22:00 05/31/16 21:59 05/04/16 21:40 10 MG Theophylline (Tyrell-Dur Extended Rel Tab) 300 mg BID PO 05/01/16 20:00 05/31/16 19:59 05/04/16 20:08 300 MG Pantoprazole Sodium (Protonix Tab) 40 mg QAM PO 05/02/16 08:00 06/01/16 07:59 05/04/16 07:59 40 MG Hydralazine HCl (HydrALAZINE INJ) 10 mg Q6 PRN IV. 05/01/16 12:45 05/31/16 12:44 Lisinopril (Zestril Tab) 10 mg DAILY PO 05/02/16 08:00 06/01/16 07:59 05/04/16 08:00 10 MG Fluticasone Propionate (Flonase Nasal [place]) 1 sprays BID NA 05/01/16 20:00 05/31/16 19:59 05/05/16 08:35 1 SPRAYS Loratadine 10 mg 10 mg QAM PO 05/03/16 08:00 06/02/16 07:59 05/04/16 08:18 10 MG Methylprednisolone Sodium Succinate/ Syringe (Solu-Medrol IV/ Syringe) 0.96 ml @ 1.5 mls/min Q6H IV 05/03/16 13:00 06/02/16 12:59 Future hold 05/05/16 00:57 1.5 MLS/MIN Guaifenesin 1200 mg 1,200 mg Q12 PO 05/03/16 21:00 06/02/16 20:59 05/04/16 21:41 1,200 MG Sodium Chloride (Nss 1000ml) 1,000 ml @ 15 mls/hr Q24H IV 05/05/16 12:15 06/04/16 12:14 Objective Vital Signs Date Time Temp Pulse Resp B/P Pulse Ox O2 Delivery O2 Flow Rate FiO2 05/05/16 14:30 36.4 69 20 155/94 95 2.0 05/05/16 14:06 87 16 95 Nasal Cannula 2.0 05/05/16 12:00 36.7 83 16 154/89 93 Nasal Cannula 2.0 05/05/16 11:55 36.5 87 16 140/98 94 Nasal Cannula 4.0 05/05/16 11:54 Mask 05/05/16 11:50 36.4 87 16 148/95 94 Nasal Cannula 4.0 05/05/16 11:40 36.4 88 16 138/99 96 Nasal Cannula 4.0 05/05/16 11:30 36.6 92 16 149/91 94 Nasal Cannula 4.0 05/05/16 11:20 36.6 92 16 155/98 93 Nasal Cannula 4.0 05/05/16 11:15 93 16 154/101 96 Mask 10.0 05/05/16 11:10 87 16 151/95 92 Mask 10.0 05/05/16 11:05 86 16 147/81 95 Mask 6.0 05/05/16 11:00 91 16 164/90 97 Mask 6.0 05/05/16 10:55 91 16 157/112 98 Mask 6.0 05/05/16 10:50 87 16 160/112 98 Mask 6.0 05/05/16 10:30 Room Air 05/05/16 10:18 Room Air 05/05/16 10:18 84 18 96 Room Air 05/05/16 07:53 36.7 90 18 158/92 93 Room Air 05/05/16 07:08 82 18 94 Room Air 05/05/16 03:20 36.7 90 22 158/92 93 Room Air 05/05/16 01:41 69 18 96 Room Air 05/05/16 00:31 Room Air 05/05/16 00:00 36.5 83 18 145/95 95 Room Air 05/04/16 19:15 99 16 97 Room Air Physical Exam General Appearance: WD/WN, no apparent distress Eyes: normal inspection ENT: normal ENT inspection Neck: supple, no adenopathy Respiratory/Chest: chest non-tender, lungs clear Cardiovascular: regular rate, rhythm, no edema Abdomen: normal bowel sounds, non tender, soft Extremities: normal range of motion, non-tender 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 Adan is a 60 y/o male with a PMHx of Severe Persistent Extrinsic Asthma, Allergic Rhinitis, HTN, CAROLINE, and GERD who is a direct admission from Dr. Oh' s office due to persistent asthma exacerbation. Acute Asthma Exacerbation: - improved - s/p bronchoscopy with washout today - cultures pending - continue DuoNeb - prednisone taper over [address] Oh Post- op SVT - currently in NSR - place patient on dollyman overnight Glucose Control: - Due to frequent steroid use and current IV therapy will monitor BSG AC and HS Allergic Rhinitis: - Flonase nasal spray HTN: - Lisinopril 10 mg daily - denies chronic cough related to this medication - will monitor - Hydralazine 10 mg PRN GERD: - Protonix 40 mg daily as Prilosec interchange DVT Prophylaxis: - Lovenox 40 mg SC daily Code Status: - FULL RESUSCITATION Disposition: - Anticipate d/c home dom
[2016-05-05 17:49] LABS: IMMUNOGLOBULN M 52.4 mg/dL (40-230)
[2016-05-05] MEDS: GENTAMICIN SCH (20:39)
[2016-05-05] MEDS: MONTELUKAST SOD 10 MG TAB PO SCH (20:40)
[2016-05-06] VITALS (12 sets, daily range): BP systolic 143–164; BP diastolic 79–94; PULSE 67–103; TEMP 36.6–36.8; O2SAT 90–98
[2016-05-06] MEDS: METHYLPREDNISOLONE IV 60 MG in SYRINGE 0 ML IV SCH ×4 (01:39→18:36)
[2016-05-06] MEDS: IPRATROPIUM BROMIDE NEB SOLN 0.02% 2.5 ML VIAL INH SCH ×4 (02:26→19:13)
[2016-05-06] MEDS: LEVALBUTEROL 1.25MG/3ML NEB INH SCH ×4 (02:26→19:14)
[2016-05-06 05:48] LABS: HEMATOCRIT 43.3 % (42-52); MEAN CELL VOLUME 86.8 fL (80-100); MEAN CORPUSCULAR HEMOGLOBIN 31.5 pg (25-34); MEAN CORPUSCULAR HGB CONC 36.3 g/dl (32-36); MEAN PLATELET VOLUME 10.4 fL (7.4-10.4); PLATELET COUNT 249 K/uL (130-400); RED BLOOD COUNT 4.99 M/uL (4.7-6.1); WHITE BLOOD COUNT 18.18 K/uL (4.8-10.8)
[2016-05-06 06:28] LABS: ESTIMATED AVERAGE GLUCOSE 123 mg/dl; HA1C FLAG Normal (Normal)
[2016-05-06] MEDS: THEOPHYLLINE 300MG EXTENDED REL TAB PO SCH ×2 (08:31→20:43)
[2016-05-06] MEDS: GUAIFENESIN 600 MG TABCR PO SCH ×2 (08:32→20:43)
[2016-05-06] MEDS: LISINOPRIL 10 MG TAB PO SCH (08:32)
[2016-05-06] MEDS: PANTOprazole SOD 40 MG TAB PO SCH (08:32)
[2016-05-06] MEDS: LORATADINE 10 MG TAB PO SCH (08:32)
[2016-05-06] MEDS: FLUTICASONE PROPIONATE NA SPR 16 GM BTL SCH ×2 (08:33→20:44)
[2016-05-06] MEDS: GENTAMICIN SCH ×3 (08:33→20:44)
[2016-05-06] MEDS ORDERED: METOPROLOL TARTRATE 25 MG TAB PO SCH (09:00)
[2016-05-06] MEDS ORDERED: LINEZOLID / D5W 600 MG in PREMIXED IN D5W 300 ML IV ONE (09:11)
[2016-05-06] MEDS ORDERED: DILTIAZEM HCL 30 MG TAB PO ONE (09:11)
--- NOTE | 2016-05-06 10:51 | Progress Note ---
Progress Note Date of Service May 06, 2016. Progress Note ID Consult Dictated [id number] A/P: 1. S. aureus PNA 2. Leukocytosis - likely secondary to infection + steroids -Start zyvox -follow final culture results -will follow, thank you
[2016-05-06] MEDS ORDERED: NURSING VERBAL MED ORDER ONE (11:00)
--- NOTE | 2016-05-06 11:31 | INFECT. DISEASE CONSULTATION ---
DATE OF CONSULTATION: 05/06/2016 DATE OF CONSULTATION: 05/06/2016. REQUESTING PHYSICIAN: Dr. Valdivia. 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 Per the H\T\P, he has been on multiple antibiotics and prednisone tapered since January of this year. He just finished a prednisone taper on the day of admission. He continued to complain of dyspnea on exertion, increasing shortness of breath and productive sputum. He was subsequently admitted to the hospital. Yesterday, he did undergo bronchoscopy which found a significant mucopurulent and inflamed findings. Sputum cultures were obtained and are growing Staph aureus. Fungal swab was negative. An AFB is pending. A crypto antigen was negative. He has had no blood cultures this admission. He has not had a flu swab; however, he did have a flu vaccine this year. He has been afebrile since admission. He has had increasing leukocytosis which peaked at 22 and is 18 today however he was placed on IV steroids at the time of admission. He states today he is feeling somewhat better with regards to bleeding but still continues to complain of dyspnea on exertion and wheezing. He was started on Zyvox today for findings of positive sputum culture. He also had a CT of the sinuses admission which showed pansinusitis disease, but he denies any pressure, however he does admit to having increased nasal congestion. He denies any fevers or chills. On my examination, he is ambulating in the room and is not having any difficulty. He denies any chest pain. He has no nausea, vomiting, diarrhea or abdominal pain. All remaining review of systems are negative except or as noted above. PAST MEDICAL HISTORY: Significant for asthma, allergic rhinitis, hypertension, obstructive sleep apnea and GERD. PAST SURGICAL HISTORY: Unremarkable. SOCIAL HISTORY: Negative for tobacco use, alcohol use or drug use. ALLERGIES: He has no known drug allergies. FAMILY HISTORY: Noncontributory. CURRENT MEDICATIONS: Include Zyvox, Lopressor, Benadryl, guaifenesin, Solu-Medrol, Claritin, Protonix, lisinopril, Singulair, theophylline, Flonase, Lovenox, Atrovent, Xopenex, hydralazine, Tylenol, Maalox, milk of magnesia, MiraLax. PHYSICAL EXAMINATION: VITAL SIGNS: He has been afebrile since admission to the hospital, pulse 103, respiratory rate 16, blood pressure 159/92, oxygen saturation is 98% on room air. GENERAL: He is awake, alert and oriented x3. He is ambulating in the room. HEAD, EYES, EARS, NOSE, AND THROAT: Mucous membranes are moist. Extraocular muscles are intact. HEART: Regular. LUNGS: Expiratory wheezing bilaterally. ABDOMEN: Soft and there is no edema bilaterally. SKIN: Without rash. LABORATORY STUDIES: CBC today reveals a white blood cell count of 18.1, hemoglobin 15.7, hematocrit 43.3 and platelets are 249. His most recent chemistry panel is Sodium 133, potassium 3.9, chloride 101, bicarbonate 24, BUN 25, creatinine 1.2, glucose was 139 Sputum culture is growing Staph aureus. Final is pending. AFB smear is pending. Fungal smear is negative. Imaging showed a chest x-ray on the which showed no active disease in the chest. CT of the sinuses is as reviewed previously. ASSESSMENT AND PLAN: 1. Likely staph aureus pneumonia. He will be continued on Zyvox pending additional cultures. 2. Leukocytosis, likely multifactorial from infection as well as intravenous steroids. We will follow along with you. Thank you for this consultation. LATRICIA
--- NOTE | 2016-05-06 12:50 | Progress Note ---
Subjective Date of Service: May 06, 2016. (Collette Ayala PA-C) Subjective Pt evaluation today including: conversation w/ patient, physical exam, chart review, lab review, review of studies, review of inpatient medication list Patient seen and evaluated. S/P bronchoscopy with S. aureus on washings. Sensitivities pending. Patient reports improvement since bronch but still feels congested. C/O hoarse voice but verbalizes no other complaints. Has had runs of SVT and intermittent tachy on monitoring. (Collette Ayala, JESSIEC) Review of Systems Constitutional: No chills, No fever ENT: + nasal symptoms, + sore throat Respiratory: + cough, + dyspnea on exertion, + wheezing Cardiac: No chest pain Abdomen: No constipation, No diarrhea, No nausea, No pain, No vomiting Musculoskeletal: No muscle pain, No swelling Male : No dysuria Skin: + itch (resolved of lower extremities) (Collette Ayala PA-C) Medications Current Inpatient Medications Medications (Trade) Dose Ordered Sig/Becky Route Start Time Stop Time Status Last Admin Dose Admin Enoxaparin Sodium (Lovenox Inj) 40 mg DAILY@1600 SQ 05/01/16 16:00 05/31/16 15:59 05/04/16 16:38 40 MG Acetaminophen (Tylenol Tab) 650 mg Q4H PRN PO 05/01/16 12:30 05/31/16 12:29 Al Hydrox/Mg Hydrox/Simethicone (Maalox Max Susp) 15 ml Q4H PRN PO 05/01/16 12:30 05/31/16 12:29 Magnesium Hydroxide (Milk Of Magnesia Susp) 30 ml Q6H PRN PO 05/01/16 12:30 05/31/16 12:29 Polyethylene (Miralax Powder Packet) 17 gm DAILY PRN PO 05/01/16 12:30 05/31/16 12:29 Ondansetron HCl (Zofran Inj) 4 mg Q6H PRN IV 05/01/16 12:30 05/31/16 12:29 Ipratropium [place] (Atrovent 0.02% 0.5MG/2.5ML Neb) 0.5 mg Q6R INH 05/01/16 15:00 05/31/16 14:59 05/06/16 07:15 0.5 MG Levalbuterol (Xopenex 1.25MG/ 3ML Neb) 1.25 mg Q6R INH 05/01/16 15:00 05/31/16 14:59 05/06/16 07:15 1.25 MG Levalbuterol (Xopenex 1.25MG/ 3ML Neb) 1.25 mg Q2H PRN INH 05/01/16 12:45 05/31/16 12:44 Montelukast Sodium (Singulair Tab) 10 mg HS PO 05/01/16 22:00 05/31/16 21:59 05/05/16 20:40 10 MG Theophylline ([place]rell-Dur Extended Rel Tab) 300 mg BID PO 05/01/16 20:00 05/31/16 19:59 05/06/16 08:31 300 MG Pantoprazole Sodium (Protonix Tab) 40 mg QAM PO 05/02/16 08:00 06/01/16 07:59 05/06/16 08:32 40 MG Hydralazine HCl (HydrALAZINE INJ) 10 mg Q6 PRN IV. 05/01/16 12:45 05/31/16 12:44 Lisinopril (Zestril Tab) 10 mg DAILY PO 05/02/16 08:00 06/01/16 07:59 05/06/16 08:32 10 MG Fluticasone Propionate (Flonase Nasal [place]) 1 sprays BID NA 05/01/16 20:00 05/31/16 19:59 05/06/16 08:33 1 SPRAYS Loratadine 10 mg 10 mg QAM PO 05/03/16 08:00 06/02/16 07:59 05/06/16 08:32 10 MG Methylprednisolone Sodium Succinate/ Syringe (Solu-Medrol IV/ Syringe) 0.96 ml @ 1.5 mls/min Q6H IV 05/03/16 13:00 06/02/16 12:59 Future hold 05/06/16 12:28 1.5 MLS/MIN Guaifenesin (Mucinex Contr Rel Tab) 1,200 mg Q12 PO 05/03/16 21:00 06/02/16 20:59 05/06/16 08:32 1,200 MG Gentamicin Sulfate (Gentamicin Nasal [place]) 2 sprays TID NA 05/05/16 21:00 05/15/16 20:59 05/06/16 08:33 2 SPRAYS Diphenhydramine HCl 50 mg 50 mg QID PRN PO 05/05/16 22:00 06/04/16 21:59 05/05/16 22:01 50 MG Linezolid/Prmx (Zyvox / D5W/ Premixed D5W) 300 ml @ 300 mls/hr Q12H IV 05/06/16 22:00 05/13/16 21:59 Diltiazem HCl (Cardizem Tab) 30 mg TID PO 05/06/16 14:00 06/05/16 13:59 Acetylcysteine (Mucomyst 20% Inh Soln) 3 ml DAILY INH 05/07/16 09:00 06/06/16 08:59 UNV (Collette Ayala PA-C) Objective Vital Signs Date Time Temp Pulse Resp B/P Pulse Ox O2 Delivery O2 Flow Rate FiO2 05/06/16 12:20 Room Air 05/06/16 11:29 36.8 97 16 145/87 95 Room Air 05/06/16 08:15 Room Air 05/06/16 08:03 36.6 103 16 159/92 98 Room Air 05/06/16 07:15 88 16 96 Room Air 05/06/16 04:49 36.6 82 18 143/92 94 Room Air 05/06/16 04:00 95 Room Air 05/06/16 02:26 80 16 96 Room Air 05/06/16 00:14 36.8 67 18 154/94 95 Room Air 05/06/16 00:00 95 Nasal Cannula 2.0 05/05/16 20:35 71 151/89 05/05/16 20:26 36.8 94 16 170/78 93 90 05/05/16 20:00 95 Nasal Cannula 2.0 05/05/16 19:08 83 16 95 Room Air 05/05/16 16:00 95 Nasal Cannula 2.0 05/05/16 14:30 36.4 69 20 155/94 95 2.0 05/05/16 14:06 87 16 95 Nasal Cannula 2.0 (Collette Ayala PA-C) Physical Exam General Appearance: WD/WN, no apparent distress Eyes: sclerae normal ENT: hearing grossly normal Neck: supple, no JVD, trachea midline Respiratory/Chest: no respiratory distress, no accessory muscle use, + pertinent finding (scattered course breath sounds) Cardiovascular: regular rate, rhythm, no gallop, no murmur Abdomen: normal bowel sounds, non tender, soft Extremities: no pedal edema, no calf tenderness Neurologic/Psychiatric: alert, oriented x 3 Skin: normal color, warm/dry (Collette Ayala PA-C) Laboratory Results Last 24 Hours Test 05/05/16 16:29 05/05/16 17:05 05/05/16 20:19 05/06/16 05:11 Bedside Glucose 158 mg/dl 178 mg/dl Immunoglobulin G 1250.0 mg/dL Immunoglobulin A 279.0 mg/dL Immunoglobulin M 52.4 mg/dL White Blood Count 18.18 K/uL Red Blood Count 4.99 M/uL Hemoglobin 15.7 g/dL Hematocrit 43.3 % Mean Corpuscular Volume 86.8 fL Mean Corpuscular Hemoglobin 31.5 pg Mean Corpuscular Hemoglobin Concent 36.3 g/dl RDW Standard Deviation 40.6 fL RDW Coefficient of Variation 12.7 % Platelet Count 249 K/uL Mean Platelet Volume 10.4 fL Estimated Average Glucose 123 mg/dl Hemoglobin A1c 5.9 % Test 05/06/16 09:35 Theophylline Level 7 mcg/ml (Collette Ayala PA-C) Assessment and Plan Mr. Adan is a 60 y/o male with a PMHx of Severe Persistent Extrinsic Asthma, Allergic Rhinitis, HTN, CAROLINE, and GERD who is a direct admission from Dr. Oh' s office due to persistent asthma exacerbation. Acute Asthma Exacerbation S/P Bronchoscopy: IMPROVED - Washout with S. aureus - sensitivities pending and further cultures pendings - continue Xopenex and Atrovent nebulizers - Solu-Medrol 60 mg IV Q6H with taper per pulmonary - Pulmonary following - Mucomyst added - ID consulted - Zyvox 600 mg IV BID Post-Op SVT: Currently NSR; PACs of EKG - Continue telemetry monitoring at current time - Did initiate Metoprolol Tartrate 12.5 mg x 1 dose - Continue Diltiazem 30 mg TID per Pulm Glucose Control: - Due to frequent steroid use and current IV therapy will monitor BSG AC and HS Allergic Rhinitis: - Flonase nasal spray HTN: - Lisinopril 10 mg daily - denies chronic cough related to this medication - will monitor - Hydralazine 10 mg PRN GERD: - Protonix 40 mg daily as Prilosec interchange DVT Prophylaxis: - Lovenox 40 mg SC daily Code Status: - FULL RESUSCITATION Disposition: - Possible D/C tomorrow Continued [facility] stay due to: multiple IV medications needed Discharge planning: home (Collette Ayala, MARISOL) ATTENDING ATTESTATION I have seen and examined patient this am. I have discussed plan of care in detail with MARISOL and agree with plan as stated above. Patient had episode of SVT overnight Vitals-reviewed GEN- NAD CVS-RRR RESP-+ rhonchi and wheezes ABD-CTA EXT- no edema Labs-reviewed Staph Bronchitis Asthma Exacerbation SVT - cont echocardiograph, start Cardizem - start zyvox/ consult ID/await culture speciation (Collette Harden MD)
[2016-05-06] MEDS: DILTIAZEM HCL 30 MG TAB PO SCH ×2 (13:35→20:42)
[2016-05-06] MEDS ORDERED: DILTIAZEM HCL 30 MG TAB PO SCH (14:00)
[2016-05-06] MEDS ORDERED: ACETYLCYSTEINE 20% INHAL SOLN ***DISPENSED BY RESP. INH SCH (16:00)
[2016-05-06] MEDS: ENOXAPARIN 40 MG/0.4 ML SYR SQ SCH (16:47)
[2016-05-06] MEDS: MONTELUKAST SOD 10 MG TAB PO SCH (20:43)
[2016-05-06] MEDS ORDERED: LINEZOLID / D5W 600 MG in PREMIXED IN D5W 300 ML IV SCH (22:00)
[2016-05-07] VITALS (7 sets, daily range): BP systolic 144–168; BP diastolic 80–93; PULSE 72–88; TEMP 36.5–37; O2SAT 91–97
[2016-05-07] MEDS: METHYLPREDNISOLONE IV 60 MG in SYRINGE 0 ML IV SCH ×2 (01:08→06:23)
[2016-05-07] MEDS: IPRATROPIUM BROMIDE NEB SOLN 0.02% 2.5 ML VIAL INH SCH ×2 (01:36→07:16)
[2016-05-07] MEDS: LEVALBUTEROL 1.25MG/3ML NEB INH SCH ×2 (01:36→07:16)
[2016-05-07] MEDS ORDERED: SODIUM CHLORIDE 0.65% NA SOLN 45 ML (OCEAN) ONE (06:25)
[2016-05-07] MEDS ORDERED: NURSING VERBAL MED ORDER ONE (06:30)
[2016-05-07] MEDS ORDERED: SODIUM CHLORIDE 0.65% NA SOLN 45 ML (OCEAN) PRN (06:45)
[2016-05-07 06:57] LABS: HEMATOCRIT 44.8 % (42-52); MEAN CELL VOLUME 86.2 fL (80-100); MEAN CORPUSCULAR HEMOGLOBIN 31.2 pg (25-34); MEAN CORPUSCULAR HGB CONC 36.2 g/dl (32-36); MEAN PLATELET VOLUME 10.6 fL (7.4-10.4); PLATELET COUNT 305 K/uL (130-400); WHITE BLOOD COUNT 19.23 K/uL (4.8-10.8)
[2016-05-07 07:26] LABS: CREATININE 1.3 mg/dl (0.60-1.40)
[2016-05-07] MEDS: PANTOprazole SOD 40 MG TAB PO SCH (08:14)
[2016-05-07] MEDS: THEOPHYLLINE 300MG EXTENDED REL TAB PO SCH (08:14)
[2016-05-07] MEDS: DILTIAZEM HCL 30 MG TAB PO SCH (08:15)
[2016-05-07] MEDS: LORATADINE 10 MG TAB PO SCH (08:15)
[2016-05-07] MEDS: GUAIFENESIN 600 MG TABCR PO SCH (08:15)
[2016-05-07] MEDS: LISINOPRIL 10 MG TAB PO SCH (08:16)
[2016-05-07] MEDS: GENTAMICIN SCH (08:16)
[2016-05-07] MEDS: FLUTICASONE PROPIONATE NA SPR 16 GM BTL SCH (08:16)
--- NOTE | 2016-05-07 10:45 | PULMONARY PROGRESS NOTE ---
DATE: 05/06/2016 PROBLEM LIST: Includes persistent extrinsic asthma with exacerbation, history of allergic rhinitis, history of mild obstructive sleep apnea. SUBJECTIVE: The patient reports that he is doing better today. He underwent bronchoscopic evaluation yesterday. He feels that his breathing is improved, although not back to his normal yet. He still is having some cough. He still is having some congestion. He still is having some chest tightness. The patient did have a significant amount of mucus lavaged from all airways during bronchoscopy, tolerated the procedure well. Preliminary culture is showing a Staph aureus at this time. The patient is still a little bit run down and tired, but is feeling better. Again, cough is present, although he is not coughing up as much. No chest congestion or tightness. Denies any other symptoms. No chest pain, no palpitations. No chest pressure or heaviness. No abdominal pain, no nausea or vomiting, no indigestion or heartburn. No diarrhea. No difficulty voiding. No swelling in his extremities. No numbness or tingling noted. OBJECTIVE: GENERAL: The patient is a 60-year-old male in no acute distress. He is alert and oriented x3. Mood is good. Affect is good. VITAL SIGNS: Temp 36.6, pulse 76, respirations 18, blood pressure is 144/83, pulse ox 95% on room air. HEENT: Normocephalic, atraumatic. Pupils equal, round and reactive to light and accommodation. Extraocular movements are intact. [place] moist gingival and buccal mucosa. NECK: Supple. There is no adenopathy present. No tenderness. No JVD, no thyromegaly. CHEST: The patient still has few scattered wheezes throughout. No rale or rhonchi noted. Fairly good air movement throughout. CARDIOVASCULAR: Regular rate and rhythm. There are no murmurs, gallops or rubs. ABDOMEN: Bowel sounds are present. Abdomen soft, nontender. No guarding, rigidity or organomegaly. EXTREMITIES: No erythema or edema. NEUROLOGIC: Cranial nerves II-XII are intact. No focal deficit noted. LABORATORY DATA: Shows a white count of 18,000, H\T\H 15.7 and 43.3, platelet count of 249,000. Preliminary bronch washings showed Staph aureus, sensitivities pending. No new imaging. IMPRESSION: This is a 60-year-old male with extrinsic asthma, was having exacerbation. Did well while he was on Xolair, but unfortunately that has been stopped several months ago and the patient has had a slow decline. The patient underwent bronchoscopic evaluation and is feeling better. Preliminaries are showing Staph aureus. Will wait for final culture. Will put the patient in isolation temporarily until we know if it is a methicillin resistant Staph aureus or not. The patient will be started on Zyvox. I did discuss this with Dr. Karla Mendoza from infectious disease team. Will put a consultation in for her as well. Also, we will try the patient on some Mucomyst and see how he does. See if this helps to expectorate any of the mucus. Otherwise, continue to follow the patient and hopefully will be able to be discharged in the next 24-48 hours.
--- NOTE | 2016-05-07 10:59 | Progress Note ---
Subjective Date of Service: May 07, 2016. Subjective Pt evaluation today including: conversation w/ patient, physical exam, chart review, lab review pt seen in follow up, oob to chair, feeling much better today, asking to go home. States breathing much improved. States he is coughing less but cough is more productive. No f/c. no hemoptysis. Sputum culture with MSSA, resistant to tetracycline. No wheezing today. remains on steroids. tolerating abx, eating well. no n/v/d. All remaining ros reviewed and are negative. Objective Vital Signs Date Time Temp Pulse Resp B/P Pulse Ox O2 Delivery O2 Flow Rate FiO2 05/07/16 08:20 Room Air 05/07/16 07:32 36.5 87 20 146/93 91 05/07/16 07:16 81 16 97 Room Air 05/07/16 04:44 37.0 88 20 168/93 95 Room Air 05/07/16 04:00 Room Air 05/07/16 01:37 87 16 97 Room Air 05/07/16 00:24 36.7 72 20 144/80 95 Room Air 05/07/16 00:00 Room Air 05/06/16 20:00 Room Air 05/06/16 19:53 36.6 76 18 144/83 90 Room Air 05/06/16 19:14 80 16 95 Room Air 05/06/16 16:00 Room Air 05/06/16 15:40 36.8 84 22 164/79 94 Room Air 05/06/16 14:11 84 16 97 Room Air 05/06/16 12:20 Room Air 05/06/16 11:29 36.8 97 16 145/87 95 Room Air Physical Exam General Appearance: WD/WN, no apparent distress Eyes: EOMI Neck: supple Respiratory/Chest: normal breath sounds, no respiratory distress, + pertinent finding (still decreased but much improved from yesteray, no wheeze on my exam) Cardiovascular: regular rate, rhythm, no edema Abdomen: non tender, soft Extremities: non-tender, normal inspection, no pedal edema Neurologic/Psychiatric: alert, oriented x 3 Skin: normal color Laboratory Results Item Value Date Time Gram Stain - Final Resulted 05/05/16 0000 Bronchial Washings Right & Left Lower Lobe Acid Fast Stain - Final Resulted 05/05/16 0000 Bronchial Washings Right & Left Lower Lobe Cryptococcal Antigen - Final Complete 05/05/16 1705 Blood NO CRYPTOCOCCAL ANTIGEN DETECTED Fungal Smear - Final Resulted 05/05/16 0000 Bronchial Washings Right & Left Lower Lobe Last 24 Hours Test 05/06/16 11:18 05/06/16 16:26 05/06/16 20:28 05/07/16 06:30 Bedside Glucose 186 mg/dl 197 mg/dl 207 mg/dl White Blood Count 19.23 K/uL Red Blood Count 5.20 M/uL Hemoglobin 16.2 g/dL Hematocrit 44.8 % Mean Corpuscular Volume 86.2 fL Mean Corpuscular Hemoglobin 31.2 pg Mean Corpuscular Hemoglobin Concent 36.2 g/dl RDW Standard Deviation 39.9 fL RDW Coefficient of Variation 12.5 % Platelet Count 305 K/uL Mean Platelet Volume 10.6 fL Creatinine 1.30 mg/dl Est Creatinine Clear Calc Drug Dose 67.4 ml/min Estimated GFR () 69.7 Estimated GFR (Non- 60.1 Test 05/07/16 07:21 Bedside Glucose 166 mg/dl Assessment and Plan (1) CAP (community acquired pneumonia) Assessment & Plan: bronch culture with MSSA, would give additional 6 days of abx, zyvox will be changed to po, eating well and improving. ok for d/c from ID standpoint when medically cleared. he can continue on zyvox, however, if co-pay is too high would suggest change to clinda 300mg po tid to complete course. suggest probiotics as well. (2) Leukocytosis Continued [facility] stay due to: multiple IV medications needed Discharge planning: home
--- NOTE | 2016-05-07 11:41 | ECHOCARDIOGRAM REPORT ---
*NOTICE TO RECEIVING [employer] This information is strictly Confidential and protected under [place] law. [place] law prohibits you from making any further disclosure of this information unless further disclosure is expressly permitted by the written consent of the person to whom it pertains or is authorized by law. A general authorization for the release of medical or other information is not sufficient for this purpose. Hospital accepts no responsibility if the information is made available to any other person, INCLUDING THE PATIENT. Interpretation Summary * Name: DONY HENDRIX Study Date: 05/07/2016 10:32 AM BP: 146/93 mmHg * Patient Location: [facility]\S\N286\S\2 HR: 80 * : 1955 (M/d/yyyy) Gender: Male Height: 68 in * Age: 60 yrs Ethnicity: [place] Weight: 207 lb * Ordering Physician: Collette Harden * Referring Physician: Bruce Melgar * Performed By: Tiffanie Faith RCS * * Reason For Study: SVT * BSA: 2.1 m2 * The study was technically adequate. * Compared to prior study, there is no significant change. * -- Conclusions -- * The left ventricle is hyperdynamic. * Ejection Fraction = >70 %. * There is moderate concentric left ventricular hypertrophy. * Grade I diastolic dysfunction, (abnormal relaxation pattern). * The right ventricular cavity size is normal (basal dimension <4.2 cm in right ventricular apical 4-chamber view). * The right ventricular systolic function is normal as assessed by tricuspid annular plane systolic excursion (TAPSE) (normal >1.5 cm). * No significant valvular pathology. Procedure Details * A complete two-dimensional transthoracic echocardiogram was performed (2D, M-mode, Doppler and color flow Doppler). Left Ventricle * The left ventricle is normal in size. * There is moderate concentric left ventricular hypertrophy. * Ejection Fraction = >70 %. * The left ventricle is hyperdynamic. * The left ventricular wall motion is normal. Right Ventricle * The right ventricle is normal size. * The right ventricular cavity size is normal (basal dimension <4.2 cm in right ventricular apical 4-chamber view). * The right ventricular systolic function is normal as assessed by tricuspid annular plane systolic excursion (TAPSE) (normal >1.5 cm). Atria * The left atrial size is normal. * Right atrial size is normal. * There is no evidence of atrial septal defect, but resolution does not allow assessment for a patent foramen ovale. Mitral Valve * The mitral valve is normal. * There is no mitral valve stenosis. * Significant mitral regurgitation is absent. Tricuspid Valve * The tricuspid valve is normal. * There is no tricuspid stenosis. * Significant tricuspid regurgitation is absent. Aortic Valve * The aortic valve is trileaflet. * Aortic stenosis is absent. * There is no significant aortic regurgitation. Pulmonic Valve * The pulmonary valve is not well seen, but the Doppler examination is normal without significant regurgitation or stenosis. Great Vessels * The aortic root and proximal ascending aorta are normal sized. Pericardium/Pleural * There is no pericardial effusion. Great Vessels * Normal inferior vena cava diameter and respiratory variation suggests normal central venous pressure. Left Ventricular Diastolic Function * Grade I diastolic dysfunction, (abnormal relaxation pattern). MMode 2D Measurements and Calculations IVSd 1.5 cm IVSs 2.1 cm LVIDd 4.4 cm LVIDs 2.5 cm LVPWd 1.5 cm LVPWs 1.5 cm IVS/LVPW 1.0 FS 42.1 % EDV(Teich) 86.0 ml ESV(Teich) 22.9 ml EF(Teich) 73.4 % EDV(cubed) 83.1 ml ESV(cubed) 16.1 ml EF(cubed) 80.6 % % IVS thick 34.3 % % LVPW thick 2.1 % LV mass(C)d 266.8 grams LV mass(C)dI 128.6 grams/m\S\2 LV mass(C)s 176.6 grams LV mass(C)sI 85.2 grams/m\S\2 SV(Teich) 63.1 ml SI(Teich) 30.4 ml/m\S\2 SV(cubed) 67.0 ml SI(cubed) 32.3 ml/m\S\2 Ao root diam 3.1 cm Ao root area 7.8 cm\S\2 LA dimension 3.6 cm LA/Ao 1.1 LVOT diam 2.0 cm LVOT area 3.2 cm\S\2 LVAd ap4 30.4 cm\S\2 LVLd ap4 7.6 cm EDV(MOD-sp4) 100.1 ml EDV(sp4-el) 102.8 ml LVAs ap4 13.8 cm\S\2 LVLs ap4 6.3 cm ESV(MOD-sp4) 29.2 ml ESV(sp4-el) 25.6 ml EF(MOD-sp4) 70.8 % EF(sp4-el) 75.1 % LVAd ap2 28.5 cm\S\2 LVLd ap2 7.6 cm EDV(MOD-sp2) 88.1 ml EDV(sp2-el) 91.1 ml LVAs ap2 14.0 cm\S\2 LVLs ap2 6.3 cm ESV(MOD-sp2) 30.0 ml ESV(sp2-el) 26.6 ml EF(MOD-sp2) 66.0 % EF(sp2-el) 70.8 % LVLd %diff -1.12 % EDV(MOD-bp) 94.5 ml LVLs %diff -0.20 % ESV(MOD-bp) 29.2 ml EF(MOD-bp) 69.1 % SV(MOD-sp4) 70.9 ml SI(MOD-sp4) 34.2 ml/m\S\2 SV(MOD-sp2) 58.2 ml SI(MOD-sp2) 28.0 ml/m\S\2 SV(MOD-bp) 65.3 ml SI(MOD-bp) 31.5 ml/m\S\2 SV(sp4-el) 77.2 ml SI(sp4-el) 37.2 ml/m\S\2 SV(sp2-el) 64.5 ml SI(sp2-el) 31.1 ml/m\S\2 Doppler Measurements and Calculations MV E max franki 56.1 cm/sec MV A max franki 83.0 cm/sec MV E/A 0.68 MV P1/2t max franki 73.3 cm/sec MV P1/2t 61.0 msec MVA(P1/2t) 3.6 cm\S\2 MV dec slope 352.0 cm/sec\S\2 MV dec time 0.25 sec Ao V2 max 161.8 cm/sec Ao max PG 10.5 mmHg Ao max PG (full) 3.3 mmHg KEARA(V,A) 2.7 cm\S\2 KEARA(V,D) 2.7 cm\S\2 LV V1 max PG 7.1 mmHg LV V1 max 133.4 cm/sec PA V2 max 146.0 cm/sec PA max PG 8.5 mmHg
[2016-05-07] MEDS ORDERED: LINEZOLID 600 MG TAB PO SCH (12:00)
--- NOTE | 2016-05-07 12:07 | PULMONARY PROGRESS NOTE ---
DATE: 05/07/2016 PROBLEM LIST: Includes: 1. Extrinsic asthma with exacerbation. 2. Methicillin sensitive staph aureus. 3. Sinusitis. SUBJECTIVE: The patient is feeling better today. States that his breathing has improved. He still has a little bit of cough and wheeze, but it is much improved and he feels that he is ready to go home. No painful respirations. No chest pain in general. No GI symptoms. No nausea or vomiting, no diarrhea. No swelling in the extremities. He is voiding well. He is eating well. OBJECTIVE: GENERAL: The patient is a 60-year-old male in no acute distress. He is sitting at the bedside. He is alert and oriented x3. Mood is good. Affect is good. VITAL SIGNS: Temp is 36.5, pulse 87, respirations 20, blood pressure is 146/93, pulse ox 97% on room air. NECK: Supple. There is no mass, no adenopathy, no bruit, no JVD, or thyromegaly. CHEST: The patient still has some wheezing left base. These are coarse in nature. No rale or rhonchi noted. CARDIOVASCULAR: Regular rate and rhythm. No murmurs, gallops or rubs. ABDOMEN: Bowel sounds present. Abdomen soft, nontender. No guarding, rigidity or organomegaly. EXTREMITIES: No erythema or edema. NEUROLOGIC: Cranial nerves II-XII are intact. No focal deficit noted. LABORATORY DATA: Shows white count of 19,000, H\T\H 16.2 and 44.8, platelet count 305,000. Cultures showing methicillin sensitive staph aureus. Sensitive to clindamycin, oxacillin, Bactrim and vancomycin. Sinus CT was done and shows pansinus disease which is most severe involving the sphenoid sinus and left maxillary sinus. The ostial and infundibular portions of left ostiomeatal unit are occluded by soft tissue per radiologist's interpretation. IMPRESSION: A 60-year-old male with extrinsic asthma who had an exacerbation and underwent bronchoscopic evaluation and is doing well. The patient is followed by Infectious Disease and per Dr. Mendoza's note recommending discharge on Zyvox. If Zyvox is not possible cost-styles, then clindamycin. At this point, I also want to get the patient set up with Ear, Nose And Throat due to severe sinus disease. The patient is agreeable to this. Will try and get the patient set up with Dr. Roblero. In regards to arrhythmias noted, has been doing well with Cardizem. Would recommend to continue Cardizem. Will have the patient followed up in the office in 1-2 weeks.
[2016-05-07] MEDS ORDERED: CRD30 PO (12:20)
[2016-05-07] MEDS ORDERED: GFNSR600 PO (12:20)
[2016-05-07] MEDS ORDERED: GNTNASAL (12:20)
[2016-05-07] MEDS ORDERED: FLNIN (12:20)
[2016-05-07] MEDS ORDERED: MCMIN20ML INH (12:20)
[2016-05-07] MEDS ORDERED: PRED10TA PO (12:20)
[2016-05-07] MEDS ORDERED: LINE1TAB7 PO (12:20)
[2016-05-07] MEDS ORDERED: CLR10 PO (12:20)
--- NOTE | 2016-05-07 12:22 | Discharge Instructions ---
Discharge Instructions Admission Reason for Admission: Asthmatic Exacerbation (Collette Ayala PA-C) Discharge Discharge Diagnosis / Problem: Asthma Exacerbation (Collette Ayala PA-C) Discharge Goals Goal(s): Decrease discomfort, Improve function, Increase independence (Collette Ayala PA-C) Activity Recommendations Activity Limitations: resume your previous activity . (Collette Ayala PA-C) Instructions / Follow-Up Instructions / Follow-Up Acute Asthma Exacerbation S/P Bronchoscopy: IMPROVED - The sample obtained from your bronchoscopy is growing an infection but is sensitive to the antibiotics you were started on - Continue Linezolid 600 mg twice a day for six more days - a prescription will be provided - Continue your home nebulizers and medications as previously prescribed - We will initiate a steroid taper and a prescription will be provided -- Take Prednisone 40 mg daily starting tomorrow (05/08) daily for 2 days, then 35 mg daily x 2 days, then 30 mg daily x 2 days, then 25 mg daily x 2 days , then 20 mg daily x 2 days, then 15 mg daily x 2 days, then 10 mg x 2 days - Continue taking Mucinex and Loratadine if these medications help. A prescription will be provided. Supraventricular Tachycardia: - After the bronchoscopy you were noted to have this rhythm on monitoring. It has since subsided - Take Diltiazem 30 mg three times a day this is a blood pressure medication that helps control fast heart rates. A prescription will be provided - You had an echocardiogram of the heart that shows that your heart pumps appropriately Allergic Rhinitis and Sinusitis: - Imaging of your sinuses shows inflammation and Aj Faith is recommending follow-up with an Ears, Nose, Throat specialist - Continue nasal sprays as prescribed to help with symptoms. Prescriptions provided. Follow-Up: - Please follow-up with Pulmonary - Aj Faith PA-C or Dr. Oh in 7-10 days (Collette Ayala PA-C) Current Hospital Diet Patient's current hospital diet: Regular Diet, Low Sodium Diet (2gm Na) (Collette Ayala PA-C) Discharge Diet Recommended Diet: Regular Diet (Collette Ayala PA-C) Pending Studies Studies pending at discharge: no (Collette Ayala PA-C) Laboratory Results Hemoglobin A1c Test 05/06/16 05:11 Range/Units Estimated Average Glucose 123 mg/dl Hemoglobin A1c 5.9 H 4.5-5.6 % (Collette Ayala PA-C) Medical Emergencies . Who to Call and When: Medical Emergencies: If at any time you feel your situation is an emergency, please call 911 immediately. . (Collette Ayala PA-C) Non-Emergent Contact Non-Emergency issues call your: Primary Care Provider Call Non-Emergent contact if: you have a fever, you have any medication questions . (Collette Ayala PA-C) . "Provider Documentation" section prepared by Collette Ayala. (Collette Ayala PA-C) VTE Core Measure Inpt VTE Proph given/why not?: Enoxaparin (Lovenox)SQ (Collette Ayala PA-C)
--- NOTE | 2016-05-07 14:47 | Discharge Summary ---
Discharge Summary Date of Service May 07, 2016. (Collette Ayala PA-C) Discharge Summary Admission Date: May 01, 2016 at 11:50 Discharge Date: May 07, 2016 Discharge Disposition: Home Principal Diagnosis: Asthma Exacerbation Immunizations: Have You Had Influenza Vaccine: No History of Tetanus Vaccine?: Yes History of Pneumococcal: Unknown History of Hepatitis B Vaccine: Yes Procedures: CHEST ONE VIEW PORTABLE CLINICAL HISTORY: Shortness of breath COMPARISON STUDY: February 07, 2016 FINDINGS: The cardiac and mediastinal contours are normal. There is no evidence of focal pulmonary consolidation. There is no evidence of failure. No pleural effusions are visualized.[ IMPRESSION: No active disease in the chest. CT SINUSES-MAXILLOFACIAL W/O CLINICAL HISTORY: Sinusitis, abnormal sinuses on bronchoscopy COMPARISON STUDY: 02/10/2010 TECHNIQUE: CT scan of the paranasal sinuses was performed in the axial plane. Coronal reconstructed images were obtained and reviewed. CT DOSE: 518.46 mGy.cm FINDINGS: There is no hydrocephalus. 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 The mastoid air cells are symmetrically aerated. Middle ear cavities are well aerated. There is mucosal thickening and fluid within the sphenoid sinus. There is a trace right maxillary sinus air-fluid level. There is moderate fluid and mucosal thickening within the left maxillary sinus. There is opacification of a left-sided ethmoid air cell. There is trace fluid within the frontal sinuses. The ostial and infundibular portions of the left ostiomeatal unit are occluded by soft tissue. The right ostiomeatal unit appears patent. Ethmoid infundibula and frontal recesses are patent. IMPRESSION: Pansinus disease, most severe involving the sphenoid sinus and left maxillary sinus. The ostial and infundibular portions of the left ostiomeatal unit are occluded by soft tissue. Consultations: 1. Pulmonology (Collette Ayala PA-C) Medication Reconciliation New Medications: Prednisone Tab (Prednisone) 10 Mg Tab 10 MG PO DAILY, #35 TAB take 40 mg daily x 2 days, 35 mg daily x 2 days, 30 mg daily x 2 days, 25 mg daily x 2 days, 20 mg daily x 2 days, 15 mg daily x 2 days, then 10 mg daily x 2 days Acetylcysteine (Acetylcysteine) 1 Ml Soln 3 ML INH DAILY@1600 for 15 Days Diltiazem HCl (Diltiazem HCl) 30 Mg Tab 30 MG PO TID for 30 Days, #90 TAB Fluticasone Propionate (Fluticasone Propionate) 50 Mcg/Act Spr 1 SPRAYS NA BID for 7 Days Gentamicin Sulfate (Gentamicin Sulfate) 100 Sprays/47.5 Ml Soln 2 SPRAYS NA TID for 15 Days Guaifenesin Ext Rel (Mucinex Ext Rel) 600 Mg Tabcr 1200 MG PO Q12 for 15 Days Linezolid (Zyvox) 600 Mg Tab 600 MG PO BID for 6 Days, #12 TAB Loratadine (Claritin) 10 Mg Tab 10 MG PO QAM for 15 Days, #15 TAB Continued Medications: Albuterol 0.083% Soln (Ventolin 0.083% Soln *) Nebu 1 AMP INH Q4HR PRN, 0 Refills Levalbuterol Soln (Xopenex 1.25MG/3ML) Nebu 1.25 MG INH BID, 0 Refills Lisinopril (Zestril) 10 Mg Tab 10 MG PO DAILY, TAB Mometasone Furoate-Formoterol (Dulera 200/5 Mcg) 1 Aer Aer 2 PUFFS INH BID for 30 Days, #13 GM 5 Refills Montelukast (Singulair *) 10 Mg Tab 10 MG PO DHS, 0 Refills Omeprazole (Prilosec) 40 Mg Capcr 40 MG PO DAILY, 0 Refills Theophylline Ext Rel (Tyrell-Dur Ext Rel) 300 Mg Tabcr 300 MG PO BID, 0 Refills Tiotropium [place] Monohydrate (Spiriva Respimat) 1.25 Mcg/Act Aer 2 PUFFS INH QPM Discontinued Medications: Prednisone (Prednisone) 20 Mg Tab 20 MG PO DIRECTED, #40 0 Refills 1 TAB TWICE DAILY FOR 7 DAYS,1 AND A 1/2 DAILY NEXT 7 DAYS,1 DAILY FOR NEXT 7 DAYS,1/2 DAILY FOR 7DAYS. Discharge Exam Review of Systems: Constitutional: No chills, No fever Eyes: No worsening of vision ENT: + nasal symptoms, No sore throat, No trouble swallowing Respiratory: + cough, No dyspnea on exertion, No shortness of breath Cardiovascular: No chest pain Abdomen: No constipation, No diarrhea, No nausea, No pain, No vomiting Musculoskeletal: No calf pain, No swelling Genitourinary - Male: No dysuria Neurologic: No numbness/tingling, No vertigo Endocrine: No fatigue Hematologic / Lymphatic: No abnormal bleeding/bruising, No clotting problems Integumentary: No itch, No rash Physical Exam: General Appearance: WD/WN, no apparent distress Eyes: sclerae normal ENT: hearing grossly normal Neck: supple, no JVD, trachea midline Respiratory/Chest: no respiratory distress, no accessory muscle use, + pertinent finding (minimal course breath sounds in bases bilat; expiratory wheezing at bases to mid lung higgins; profound improvement in air flow throughout all lung higgins) Cardiovascular: regular rate, rhythm, no gallop, no murmur Abdomen / GI: normal bowel sounds, non tender, soft Extremities: no calf tenderness, no pedal edema Neurologic/Psychiatric: alert, oriented x 3 Skin: normal color, warm/dry (Collette Ayala, MARISOL) Hospital Course ADMISSION: Mr. Adan is a 60 y/o male with a PMHx of Severe Persistent Extrinsic Asthma, Allergic Rhinitis, HTN, CAROLINE, and GERD who is a direct admission from Dr. Oh's office due to persistent asthma exacerbation. He reports that prior to he has had well controlled asthma. Since he has had multiple Prednisone tapers and antibiotic treatment that did not seem to completely resolve his symptoms but was more manageable. During this month he notes increased nasal congestion and a productive cough. This cough was initially productive of green/yellow sputum and he was treated with a Z-rosa elena and Prednisone taper that he finished today. He reports that his sputum is now clear but still reporting wheezing and MUÑIZ. 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 He has been using his Xopenex nebulizer nearly every hour without significant relief. He also has been utilizing his rescue inhaler 2-3 times at night. Associated intermittent nose bleeds and hemoptysis. He reports multiple sick contacts at work. Denies direct knowledge of triggers of his asthma but does report a mold/environmental allergy. He denies fever/chills, CP, N/V, abdominal pain, dysuria, constipation/ diarrhea. Acute Asthma Exacerbation S/P Bronchoscopy (05/05): MSSA Bronchial Washings - He was treated with Solu-Medrol and nebulizer treatments with minimal improvement. Marked improvement with bronchoscopy which + MSSA - Pulmonary and ID following and placed on Zyvox IV with conversion to Zyvox 600 mg BID po x 6 more days for a total 7 day course -- Involved case management for co-pay associated with Zyvox and reports 6 day supply is approx. $50 and patient verbalized acceptance -- Offered ID's recommendation of Clindamycin but patient would like to remain with Zyvox - IV steroids converted to po with initiation of a slow taper of Prednisone 40 mg daily x 2 days with a decrease by 5 mg every 2 days - He was initiated on Mucomyst and Rx provided. Instructed to continue home nebulizers and medications as previously prescribed Allergic Rhinitis and Sinusitis: - Maxillofacial CT performed - see procedures for full report - evidence of sinusitis - Rx provided for Flonase, Gentamicin nasal spray, Mucinex, and Loratadine Post-Op SVT: Currently NSR; PACs on EKG - After bronchoscopy he had multiple runs of SVT which resolved. Initial control attempted with Metoprolol Tartrate 12.5 mg x 1 dose to monitor for tolerance as concern for bronchospasm placed. - He was placed on Diltiazem and a prescription was provided for Diltiazem 30 mg TID Glucose Control: - His BSGs were monitored in setting of steroid use but coverage unnecessary DVT Prophylaxis: - Lovenox 40 mg SC daily Code Status: - FULL RESUSCITATION Disposition: - Instructed to follow-up with Pulm in 7-10 days. Discussed case with Aj Faith PA-C for any further recommendations. Per Aj will initiate ENT referral. - Patient is afebrile and without new complaints. No further runs of SVT. He is optimal for D/C home with Pulm follow-up. - Patient reports that he is no longer under the care of Dr. Matt and therefore treated under the [facility]. Total Time Spent: Greater than 30 minutes This includes examination of the patient, discharge planning, medication reconciliation, and communication with other providers. (Collette Ayala PA-C) ATTENDING ATTESTATION I saw and examined patient today. I have discussed plan of care with MARISOL Ayala and agree with discharge summary as stated above. (Collette Harden MD) Discharge Instructions Please refer to the electronic Patient Visit Report (Discharge Instructions) for additional information. (Collette Ayala PA-C) Additional Copies To Oziel Oh M.D.; Aj Faith PA-C
[2016-05-11 00:14] LABS: ASPERGILLUS FLAVUS Negative (Negative); ASPERGILLUS FUMIGATUS Negative (Negative); ASPERGILLUS NIGER Negative (Negative); IMMUNOGLOBULIN E TC 24620E 80 KU/L (<115)
[2016-05-30 19:27] LABS: HERPES SIMPLEX CULT SOURCE OTHER-L/R TRACH TREE; HERPES SIMPLEX VIRUS CULT NOT ISOLATED (NOT ISOLATED)
== END 2016-05-07 13:49 | disposition home or self-care (01) | DRG 178 ==
LOC: ENRESERVDT → ENRESERVTM → C.MS4W 11:50 → C.MED 05-05 12:27
PROVIDERS: ADMIT Hospitalist; ATTEND Internal Medicine
PROC: 0B978ZX Drainage of Left Main Bronchus, Via Natural or Artificial Opening Endoscopic, Diagnostic (ICD-10-PCS; principal; 2016-05-05)
PROC: 0B938ZX Drainage of Right Main Bronchus, Via Natural or Artificial Opening Endoscopic, Diagnostic (ICD-10-PCS; 2016-05-05)
DX: J15.211 Pneumonia due to Methicillin susceptible Staphylococcus aureus (principal); J45.51 Severe persistent asthma with (acute) exacerbation; R04.2 Hemoptysis; I47.1 Supraventricular tachycardia; I10 Essential (primary) hypertension; K21.9 Gastro-esophageal reflux disease without esophagitis; G47.33 Obstructive sleep apnea (adult) (pediatric); D72.829 Elevated white blood cell count, unspecified; J32.9 Chronic sinusitis, unspecified; Z79.52 Long term (current) use of systemic steroids; Z79.899 Other long term (current) drug therapy

== ENCOUNTER → 2016-06-02 | Outpatient (CLI) | payer OTHER ==
[~2016-06-02] MED LIST changes: +CLR10 PO; +CRD30 PO; +FLNIN; +GFNSR600 PO; +GNTNASAL; +LINE1TAB7 PO; +LISI-461 PO; +MCMIN20ML INH; +MOME200A INH; +PRED10TA PO; -PRED20TA PO; +TIOT1AER2 INH; -XOLAIR INJ
--- NOTE | 2016-06-02 14:37 | DIAGNOSTIC IMAGING REPORT ---
Study: Fusion CT of the sinuses Indication, sinusitis FINDINGS: All major sinuses are generally clear. Minimal mucosal thickening base right sphenoid sinus. Ostiomeatal units are patent bilaterally. Mastoid air cells are clear. Mild hyperplastic change left nasal turbinates as compared to the right. No significant nasal occlusive change. Osseous structures show no bony destructive process. IMPRESSION: 1. The majority of the sinuses are clear. 2. Ostiomeatal units are patent bilaterally. 3. Minimal mucosal thickening base right sphenoid and left maxillary sinus. 4. Incidental note is made of postoperative metallic clips posterior globes at the optic nerve insertions Electronically signed by: Abhilash Decker M.D. 06/02/2016 2:36 PM Dictated Date/Time: 06/02/2016 2:31 PM
== END | disposition home or self-care (01) ==
LOC: C.CTS 13:46
PROVIDERS: ATTEND Physician Assistant Medical
DX: J32.0 Chronic maxillary sinusitis (principal); J32.3 Chronic sphenoidal sinusitis; R09.82 Postnasal drip

== ENCOUNTER → 2016-07-14 | Outpatient (CLI) | payer OTHER ==
[~2016-07-14] MED LIST changes: -THEO1TAB14 PO; +THEO300T14 PO
--- NOTE | 2016-07-14 15:27 | DIAGNOSTIC IMAGING REPORT ---
RIGHT LOWER EXTREMITY VENOUS DOPPLER CLINICAL HISTORY: Right leg pain and swelling. COMPARISON STUDY: No previous studies for comparison. TECHNIQUE: Sonography of the deep venous system of the right lower extremity was performed. Compression and augmentation were evaluated. FINDINGS: The right common femoral, superficial femoral and popliteal veins were compressible. Augmentation was normal. Flow was shown within the deep calf vessels. IMPRESSION: No evidence of deep venous thrombus within the right lower extremity. Electronically signed by: Pratik Gonsales M.D. 07/14/2016 3:26 PM Dictated Date/Time: 07/14/2016 3:26 PM
== END | disposition home or self-care (01) ==
LOC: C.ULTR 15:04
PROVIDERS: ATTEND Family Medicine
DX: M79.604 Pain in right leg (principal); R60.0 Localized edema

== ENCOUNTER → 2016-07-17 | Outpatient (CLI) | payer OTHER ==
[2016-07-17 11:00] LABS: ALB/GLOB RATIO 1.1 (0.9-2); ALT/SGPT 38 U/L (12-78); AST/SGOT 24 U/L (15-37); BLOOD UREA NITROGEN 16 mg/dl (7-18); BUN/CREATININE RATIO 13.3 (10-20); CARBON DIOXIDE 27 mmol/L (21-32); CHLORIDE 105 mmol/L (98-107); CHOLESTEROL 233 mg/dl (0-200); CHOLESTEROL/HDL RATIO 4.1; GLUCOSE 116 mg/dl (70-99); HDL CHOLESTEROL 57 mg/dl; LDL CHOLESTEROL CALCULATED 144 mg/dl; POTASSIUM 4.1 mmol/L (3.5-5.1); SODIUM 141 mmol/L (136-145); TRIGLYCERIDES 161 mg/dl (0-150); VERY LOW DENSITY LIPOPROT CALC 32 mg/dl
[2016-07-17 11:02] LABS: ALKALINE PHOSPHATASE 57 U/L (45-117)
[2016-07-17 11:54] LABS: CALCIUM 9.3 mg/dl (8.5-10.1)
== END | disposition home or self-care (01) ==
LOC: C.RAD 09:02
PROVIDERS: ATTEND Family Medicine
DX: Z12.5 Encounter for screening for malignant neoplasm of prostate (principal); Z13.220 Encounter for screening for lipoid disorders; R10.84 Generalized abdominal pain

== ENCOUNTER → 2016-07-20 | Outpatient (CLI) | payer OTHER ==
--- NOTE | 2016-07-20 09:31 | DIAGNOSTIC IMAGING REPORT ---
CHEST AND ABDOMEN 2 VIEWS HISTORY: GENERALIZED ABDOMINAL PAIN COMPARISON: Chest 05/01/2016. FINDINGS: Stable 1 cm nodular density within the left midlung zone. This likely represents a nipple shadow. The lungs are otherwise clear. The heart is normal in size. No pleural effusions. No pneumothorax. The bowel gas pattern is unremarkable. No evidence for bowel obstruction. No renal or ureteral calculi. No pneumoperitoneum. No pneumatosis. IMPRESSION: No acute cardiopulmonary process. No evidence for bowel obstruction. Electronically signed by: Tomy Vasquez M.D. 07/20/2016 9:29 AM Dictated Date/Time: 07/20/2016 9:26 AM
== END | disposition home or self-care (01) ==
LOC: C.RAD 08:49
PROVIDERS: ATTEND Family Medicine
DX: R10.84 Generalized abdominal pain (principal)

== ENCOUNTER → 2016-07-29 | Outpatient (CLI) | payer OTHER ==
[~2016-07-29] MED LIST changes: +OPTIRAY 320 IV PRN
--- NOTE | 2016-07-29 12:24 | DIAGNOSTIC IMAGING REPORT ---
ABDOMEN AND PELVIS CT WITH IV AND ORAL CONTRAST CT DOSE: 678.41 mGy.cm HISTORY: Pain. Edema. SWELLING RT LEG TECHNIQUE: Multiaxial CT images of the abdomen and pelvis were performed following the use of intravenous and oral contrast. COMPARISON STUDY: 11/26/2005 FINDINGS: Lung bases are clear. Liver enhances uniformly as does the spleen and pancreas. Right kidney is negative for hydronephrosis. Left kidney shows several small cortical cysts. It is also negative for hydronephrosis. Pancreas is uniform. There is no significant perinephric adenopathy. Bowel pattern within the abdomen and pelvis is nonobstructive. No abnormal mass or collection is seen. There is no significant abdominal pelvic or inguinal adenopathy. IMPRESSION: Several very small left renal cyst. 2. The abdomen and pelvis is otherwise negative. Electronically signed by: Abhilash Decker M.D. 07/29/2016 12:23 PM Dictated Date/Time: 07/29/2016 12:07 PM
== END | disposition home or self-care (01) ==
LOC: C.CTS 09:13
PROVIDERS: ATTEND Family Medicine
DX: M79.89 Other specified soft tissue disorders (principal)

== ENCOUNTER → 2016-08-14 | Outpatient (CLI) | payer OTHER ==
[~2016-08-14] MED LIST changes: -OPTIRAY 320 IV PRN
--- NOTE | 2016-08-14 15:25 | DIAGNOSTIC IMAGING REPORT ---
MRI OF THE RIGHT KNEE CLINICAL HISTORY: Right knee pain. COMPARISON STUDY: No priors. TECHNIQUE: MRI of the right knee was performed utilizing proton density, T1, and T2-weighted sequences in the axial, sagittal, coronal planes. IV contrast was not administered for this examination. Note that interpretation is suboptimal without plain film correlate. FINDINGS: Menisci: There is a bucket-handle tear involving the body of the medial meniscus. The fragment is flipped peripherally along the medial tibial plateau. This is best seen on coronal image #17 of 28. The lateral meniscus is intact. Ligaments: The anterior and posterior cruciate ligaments are intact. The medial and lateral collateral ligaments are within normal limits. Extensor mechanism: The extensor mechanism is intact. Hoffa's fat pad is normal in appearance. Articular cartilage and bone: There is mild degenerative thinning of the articular cartilage in all 3 compartments. No full thickness cartilage loss or reactive marrow edema is identified. Normal marrow signal is preserved of the visualized bony structures. A calcified fabella is incidentally noted. Joint effusion: There is a small joint effusion. Soft tissues: Prepatellar soft tissue edema is noted. The musculature surrounding the knee joint is normal in bulk and signal intensity. There is a tiny popliteal cyst. Fluid seen tracking along the medial head of the gastrocnemius muscle. IMPRESSION: 1. There is a large bucket-handle tear involving the body of the medial meniscus. The fragment is flipped peripherally along the medial tibial plateau. 2. The lateral meniscus, the cruciate ligaments, and the collateral ligaments are maintained. 3. Soft tissue edema is present around the knee. 4. Small joint effusion and small popliteal cyst. Electronically signed by: Cesar Manzo M.D. 08/14/2016 3:24 PM Dictated Date/Time: 08/14/2016 3:12 PM
== END | disposition home or self-care (01) ==
LOC: C.MRI 13:57
PROVIDERS: ATTEND Physician Assistant
DX: M25.569 Pain in unspecified knee (principal); S83.211A Bucket-handle tear of medial meniscus, current injury, right knee, initial encounter; X58.XXXA Exposure to other specified factors, initial encounter; M79.9 Soft tissue disorder, unspecified; M25.461 Effusion, right knee; M71.21 Synovial cyst of popliteal space [Baker], right knee

== ENCOUNTER → 2016-09-04 | Outpatient (CLI) | payer OTHER ==
[~2016-09-04] MED LIST changes: +THEO1TAB14 PO; -THEO300T14 PO
[2016-09-04 10:30] LABS: BASO % 0.9 %; BASO ABS # 0.08 K/uL (0-0.2); COMPLETE YES; EOS % 8.8 %; HEMATOCRIT 46.3 % (42-52); IG% 1.5 %; LYMPH % 19.1 %; LYMPH ABS # 1.66 K/uL (1.2-3.4); MEAN CELL VOLUME 86.7 fL (80-100); MEAN CORPUSCULAR HEMOGLOBIN 29.4 pg (25-34); MEAN CORPUSCULAR HGB CONC 33.9 g/dl (32-36); MONO % 13.2 %; NEUT % 56.5 %; PLATELET COUNT 290 K/uL (130-400); RED BLOOD COUNT 5.34 M/uL (4.7-6.1); WHITE BLOOD COUNT 8.68 K/uL (4.8-10.8)
== END | disposition home or self-care (01) ==
LOC: C.LAB 09:20
PROVIDERS: ATTEND Internal Medicine Pulmonary Disease
DX: J82 Pulmonary eosinophilia, not elsewhere classified (principal); J31.0 Chronic rhinitis

== ENCOUNTER → 2016-09-16 | Outpatient (CLI) | payer OTHER ==
--- NOTE | 2016-09-16 11:03 | DIAGNOSTIC IMAGING REPORT ---
TWO VIEW CHEST CLINICAL HISTORY: Asthma. Cough. FINDINGS: PA and lateral chest radiographs are compared to study dated 07/20/2016. Correlation is made with chest CT dated 03/10/2010. The heart is top normal for projection. The mediastinal contour is within normal limits. A nipple shadow projects over the left lower lung. The lungs and pleural spaces are clear. There is no pneumothorax. The bony thorax appears intact. IMPRESSION: No active disease in the chest. Electronically signed by: Cesar Manzo M.D. 09/16/2016 11:02 AM Dictated Date/Time: 09/16/2016 11:00 AM
--- NOTE | 2016-09-16 11:12 | DIAGNOSTIC IMAGING REPORT ---
PARANASAL SINUSES 4 VIEWS CLINICAL HISTORY: Chronic rhinitis. FINDINGS: 4 views of the paranasal sinuses are correlated with paranasal sinus CT dated 05/05/2016. There is partial opacification of the left maxillary antrum. The remaining paranasal sinuses are clear as visualized. The bony orbits and calvarium appear intact. The mastoid air cells appear clear. IMPRESSION: There is partial opacification of the left maxillary antrum. The remaining paranasal sinuses are clear as seen by x-ray. Electronically signed by: Cesar Manzo M.D. 09/16/2016 11:11 AM Dictated Date/Time: 09/16/2016 11:09 AM
== END | disposition home or self-care (01) ==
LOC: C.RAD 10:29
PROVIDERS: ATTEND Internal Medicine Pulmonary Disease
DX: J45.909 Unspecified asthma, uncomplicated (principal); R05 Cough; J31.0 Chronic rhinitis

== ENCOUNTER → 2016-10-05 | Outpatient (CLI) | payer OTHER | END | disposition home or self-care (01) | LOC: C.MAMM 12:28 | PROVIDERS: ATTEND Internal Medicine Pulmonary Disease | DX: M81.0 Age-related osteoporosis without current pathological fracture (principal); Z79.52 Long term (current) use of systemic steroids ==

== ENCOUNTER → 2017-05-25 | Outpatient (CLI) | payer OTHER ==
[~2017-05-25] MED LIST changes: -PRED10TA PO; -THEO1TAB14 PO; +THEO300T14 PO
== END | disposition home or self-care (01) ==
LOC: C.RDSM 09:46
PROVIDERS: ATTEND Physical Medicine & Rehabilitation Sports Medicine
DX: M25.561 Pain in right knee (principal)

== ENCOUNTER → 2017-06-18 | Outpatient (CLI) | payer OTHER ==
[~2017-06-18] MED LIST changes: -ALBINS INH; +ASPECOTC PO; -CLR10 PO; -FLNIN; -GFNSR600 PO; -GNTNASAL; +HYDR-5688 PO; -LEVA1.25 INH; +LEVA1.258 NEB; -LINE1TAB7 PO; -LISI-461 PO; -MCMIN20ML INH; +MEPO1INJ SQ; +MONT1TAB5 PO; +OMEP20TA14 PO; -OMEP40CA PO; +RRALBUT083 NEB; -SNG10 PO; -THEO300T14 PO; -TIOT1AER2 INH; +VNTHFA/IN INH
== END | disposition home or self-care (01) ==
LOC: C.CPL 09:34
PROVIDERS: ATTEND Physician Assistant
DX: S83.239A Complex tear of medial meniscus, current injury, unspecified knee, initial encounter (principal); X58.XXXA Exposure to other specified factors, initial encounter

== ENCOUNTER → 2017-06-24 | Day surgery (SDC) | payer OTHER ==
[2017-06-15 15:02] VITALS: Ht 172.7 cm; Wt 100.9 kg
[~2017-06-24] VITALS: Ht 172.7 cm; Wt 100.9 kg
[~2017-06-24] MED LIST changes: +ATROPINE SULFATE 0.1 MG/ML 5ML SYR IV PRN; +CEFAZOLIN 2000MG IV PUSH 15 ML IV SCH; +DEXAMETHASONE SOD INJ 4 MG/ML VIAL ONE; +EpHEDrine SULFATE INJ 50 MG/ML AMP IV PRN; +FENTANYL CITRATE INJ 50 MCG/1 ML 2 ML VIAL ONE; +LACTATED RINGER'S 1000ML 1,000 ML IV SCH; +LIDOCAINE HCL 2% 2 ML VIAL (20MG/ML) ONE; +LIDOCAINE/EPINEPHRINE 1% 20 ML VIAL ONE; +MIDAZOLAM HCL 1 MG/ML 2ML VIAL ONE; +MoRPHine SULFATE 2 MG/ML CARP IV PRN; +MoRPHine SULFATE 4 MG/ML 1 ML CARP\\VIAL IV PRN; +NURSING VERBAL MED ORDER ONE; +ONDANSETRON INJ 2 MG/ML 2 ML VIAL IV PRN; +ONDANSETRON INJ 2 MG/ML 2 ML VIAL ONE; +OXYCODONE/ACETAMINOPHEN 5-325 TAB PO PRN; +PROPOFOL IV EMULSION 10 MG/ML 20 ML VIAL IV ONE; +SODIUM CHLORIDE 0.9% 1000ML 1,000 ML IV SCH
--- NOTE | 2017-06-24 10:23 | History & Physical Bridge Note ---
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 This was not detected in the routine preoperative process. He had a lung infection which had MRSA. He has not had any other MRSA infections. He does not know his colonization status. Were not planning on any implants. I think it is reasonable to proceed with surgery. We will do Betadine nasal swabs. No changes noted
--- NOTE | 2017-06-24 11:24 | [facility] Post Operative Brief Note ---
Immediate Operative Summary Operative Date Jun 24, 2017. Pre-Operative Diagnosis Right Knee Medial Mensicus Tear Post-Operative Diagnosis same as preop Procedure(s) Performed Arthroscopic partial medial meniscectomy of the right knee Surgeon Dr. Murphy Dockmaster Surgeon(s) Davin Batista PA-C Estimated Blood Loss Minimal Findings Consistent with Post-Op Diagnosis Specimens none Drains None Anesthesia Type General Complication(s) none Disposition Accompanied Pt To Recovery: no Disposition: Recovery Room / PACU
--- NOTE | 2017-06-24 11:40 | Discharge Instructions-SurgCtr ---
Discharge Instructions Date of Service Jun 24, 2017. Visit Reason for Visit: Right Knee Medial Meniscus Tear Discharge Discharge Diagnosis / Problem: Right knee medial meniscal tear Discharge Goals Goal(s): Decrease discomfort, Improve function, Increase independence Activity Recommendations Activity Limitations: per Instructions/Follow-up section Weightbearing Status: Left weightbearing (as tolerated), Right weightbearing ( as tolerated) Anesthesia . Post Anesthesia Instructions: If you have had General Anesthesia or IV Sedation: * Do not drive today. * Resume driving when surgeon permits. * Do not make important decisions or sign legal documents today. * Call surgeon for: 1. Temperature elevations greater than 101 degrees F. 2. Uncontrollable pain. 3. Excessive bleeding. 4. Persistent nausea and vomiting. 5. Medication intolerance (nausea, vomiting or rash). * For nausea and vomiting use only clear liquids such as: tea, soda, bouillon until nausea subsides, then gradually increase diet as tolerated. * If you have any concerns or questions, call your surgeon's office. If physician is unavailable and it is an emergency, call 911 or go to the nearest emergency room. . Instructions / Follow-Up Instructions / Follow-Up The following are instructions to follow after your Arthroscopic Knee Surgery. ACTIVITY RECOMMENDATIONS: * Minimize activity until your first visit after surgery. * No excessive walking, jogging, sports or laboring. * Return to activity is individualized. Most patients are able to return to every day activities within one month. * Return to sports or intensive labor usually occurs at 2-3 months. * Driving is not permitted until at least your first postoperative visit at a minimum. Please ask your doctor when it is safe to resume driving. If you have an automatic vehicle and your left leg has been operated on, then you may begin driving as soon as you are comfortable and can drive safely. SCHOOL/WORK RECOMMENDATIONS: * You may return to sedentary work or school when you are feeling more comfortable. This is usually 3-7 days after surgery. * Expect increased discomfort with increased activity. Continue to elevate and ice the leg as much as possible. MEDICATIONS: * You will have a prescription for pain medication after surgery. * Use the pain medication for severe pain and Tylenol or anti-inflammatory for less severe pain.. Once the pain medication has run out, try to use the anti-inflammatory medication or Tylenol. Take Tylenol while on aspirin. If this is not effective, contact the office for assistance. * The pain medication may cause nausea, constipation and drowsiness. You should see how they affect you before driving or similar activity. * The anti-inflammatory medication may cause stomach upset and bleeding. If this occurs let your doctor know immediately . * Take a stool softener like Colace or a laxative like Senokot to prevent constipation. Take aspirin 325 mg p.o. twice daily * Take aspirin 325 mg twice daily with food to prevent blood clots after surgery. He will take this for 3 weeks after surgery. Start taking tonight () with dinner. DIET: * Resume previous diet. SPECIAL CARE: ICE: You have the option of an ice cooler, gel packs or ice bags. * If you have an ice cooler, refer to the instructions for that device. The ice cooler may be used continuously. * If you do not have an ice cooler, you will need to use ice bags or gel packs. Do not apply ice directly to the skin. Use a thin dressing or rashawn shirt between the skin and ice bag. Apply ice for 20-30 minutes and repeat every 2-4 hours. This is especially important for the first 7-10 days after surgery. Once the pain improves, use ice as needed. ELEVATION: * Keep your leg elevated at or above the level of your heart as much as possible. * Expect some increased discomfort and swelling if you are standing for any length of time. * When lying down, avoid placing anything under your knee. Rather, prop your leg up by placing several pillows under your heel or calf. DRESSING: * Your dressing will be changed at your first therapy appointment approximately 4-5 days after surgery. Band-aids, tape strips or gauze may be applied. You may then change your dressing daily. * Reapply dressing followed by the Elder wrap or Tubi-director medical affairs stockinet and EBIce cooling pad (if chosen). * Always wash your hands prior to touching the incision area. * Once the stitches are removed, you may leave the wound open to air or cover with an Elder wrap or Tubi-director medical affairs stockinet. * If you have been given a white elastic stocking (JM hose), wear as much as possible for the first 1-3 weeks depending on swelling. * Expect some bloody drainage for the first few days after surgery. * Leave the tape strips, if present, in place for 5-7 days. * Band-aids and gauze may be changed daily. CRUTCHES: * You will need to use crutches after surgery. * You may gradually progress to full weight bearing as tolerated and wean off the crutches unless otherwise advised. * Your therapist can provide assistance weaning off crutches. * Patients who have a microfracture done may need to be toe-touch weight- bearing for 4-6 weeks. BATHING: * You may shower or sponge-bathe immediately after surgery. * The dressing will need to be covered with a plastic bag or plastic wrap until the dressing is changed on the fourth or fifth day after surgery. * Once the dressing has been changed on the fourth or fifth day after surgery, you may shower and get the incision wet. * Wash with regular soap and water. * Do not bathe (submerge the incision), soak, swim or use a hot tub until the incision is completely healed over with normal skin and the doctor has given the OK to proceed. * There is no need to apply any ointments, powders or salves to your incision. * Do not apply alcohol or hydrogen peroxide directly to the incision. * Diluted peroxide (50:50 mixture with sterile saline) may be used to clean dried blood from around the incision area. BRACE: * Bracing is generally not needed after routine Arthroscopic Knee surgery. THERAPY: * You will begin therapy four or five days after surgery. * Organized therapy with the therapist is important for the first 4-6 weeks after surgery. During that time you will attend therapy 1-3 times per week. * You will also need to do daily exercises for range of motion and strength as instructed. PROBLEMS/QUESTIONS: * If you have any problems such as severe pain, numbness, tingling or high fevers or if you have any questions, please contact the office at [phone]. * It is not uncommon to have some numbness and tingling after the surgery especially if you have had a nerve block done. This should gradually improve over the first 1- 2 days. If this persists longer or worsens please contact the office. FOLLOW UP VISIT: * If not already scheduled, please call the office at to schedule a follow-up appointment for 10 days, 6 weeks and 3 months after surgery. *you have a physical therapy appointment on June 28, 2017 at 9 AM *You have a follow-up with Dr. Murphy on July 06, 2017 and 9 AM. Diet Recommendations Home Diet: no limitations, resume previous diet Procedures Procedures Performed: Arthroscopic partial medial meniscectomy of the right knee Pending Studies Studies pending at discharge: no Medical Emergencies . Who to Call and When: Medical Emergencies: If at any time you feel your situation is an emergency, please call 911 immediately. . Non-Emergent Contact Non-Emergency issues call your: Surgeon Call Non-Emergent contact if: temperature is above 101, your pain is not controlled, wound has increased drainage, wound has increased redness, wound has increased pain, you have any medication questions . . "Provider Documentation" section prepared by Karla Batista. . [place] Drug Monitoring Program Search Results: patient reviewed within database, no issues identified
--- NOTE | 2017-06-24 11:43 | [facility] Operative Report ---
Operative Report Operative Date Jun 24, 2017. Pre-Operative Diagnosis Right Knee Medial Mensicus Tear Post-Operative Diagnosis same as preop Procedure(s) Performed Arthroscopic partial medial meniscectomy of the right knee Surgeon Dr. Murphy Soil Surveyor Surgeon(s) Davin Batista PA-C Estimated Blood Loss Minimal Findings Medial meniscus tear. Medial femoral condyle and patellar chondrosis. Specimens none Anesthesia Laryngeal mask Complication(s) None Disposition Recovery Room / PACU Indications Patient is a 61-year-old male with right medial knee pain consistent with a torn meniscus confirmed by MRI and refractory to nonsurgical methods of management. The patient states that he has a history of MRSA which was unbeknownst to us until the preop today. I have reviewed all of his cultures at [facility] and none of them show positive for MRSA. He did have a positive methicillin sensitive staph culture. Betadine nasal swab is given. Description of Procedure Informed consent was obtained. The patient was identified as Nakul Neri. The operative site was identified as the right knee which I marked with my initials. A preop dose of IV antibiotics was given. The patient was positioned supine on the operating room table. A preoperative surgical timeout was performed. The examination under anesthesia revealed range of motion 4/0/ 135. He had 1+ MCL and LCL laxity in mid position with firm endpoint. No effusion varus alignment and negative posterior drawer and Madeline.. A lateral post was used for stressing the knee. No tourniquet was applied. DVT prophylaxis intraoperatively with foot pumps intraoperatively and aspirin postoperatively a laryngeal mask anesthetic was administered. Prior to start of the operation 1% lidocaine with epinephrine was injected into the knee joint , fat pad and portal sites. Inferolateral viewing portal superior lateral outflow portal and inferomedial working portals were established. Diagnostic arthroscopy was performed. There was some grade 2 chondrosis of the proximal medial portion of the median ridge which was debrided with a shaver. Trochlea looked normal. There were no loose bodies. Suprapatellar pouch popliteal hiatus medial and lateral gutters were normal. Lateral compartment showed some grade 1 softening of the lateral tibial plateau. Femoral articular surface normal. Lateral meniscus intact and stable to probing. Posterior medial and lateral compartments were normal. The exception was that there was some nodularity of the posterior horn the medial meniscus which was stable and not needing of treatment and was secondary to his meniscus tear. Cruciate ligaments were normal. Retropatellar fat pad resected. The medial compartment showed some diffuse grade 1 and 2 chondrosis of the medial femoral condyle which was left as is. He had a complex tear of the medial meniscus. There was an oblique tear which had flipped underneath the anterior portion. This was on incarcerated and removed. The oblique portion went straight back to the region of the MCL at the meniscocapsular junction. Partial medial meniscectomy was performed using basket forceps and motorized shaver. There is an undersurface component extending back towards the posterior horn attachment which was debrided as well. The meniscus was stable to probing. The shaver was run through need to cigar packer and picker loose debris. The portals were closed with 4-0 nylon soft sterile dressing was applied. He was awakened from anesthesia without difficulty and taken to the recovery room in stable condition. There were no specimens or complications. Counts were correct in the case. Blood loss was minimal. At the conclusion operation spoke patient's family informed them of my findings. Detailed postoperative instructions were given. He can rehabilitated according to the arthroscopic partial medial meniscectomy protocol and he will be able to weight-bear as tolerated. Start aspirin the 325 mg p.o. twice daily the evening of surgery. I attest to the content of the Intraoperative Record and any orders documented therein. Any exceptions are noted below.
--- NOTE | 2017-06-24 11:43 | [facility] Operative Report ---
Operative Report Operative Date Jun 24, 2017. Pre-Operative Diagnosis Right Knee Medial Mensicus Tear Post-Operative Diagnosis same as preop Procedure(s) Performed Arthroscopic partial medial meniscectomy of the right knee Surgeon Dr. Murphy Turnaround Planner Surgeon(s) Davin Batista PA-C Estimated Blood Loss Minimal Specimens none Drains None Anesthesia Type General Complication(s) none Disposition no Recovery Room / PACU Indications Patient is a 61-year-old male with complaints of right knee pain. He is failed conservative treatment he complained of pain in the along the medial joint line. X-rays were taken and was found to have relatively normal x-rays. MRI was obtained and found to have a radial tear of his medial meniscus. Surgical intervention was discussed and he wished to proceed. Risks and complications were discussed and informed consent was obtained. Description of Procedure Patient was taken to the operating room and placed under general anesthesia. He was given 2 g of IV Ancef for surgical prophylaxis. Timeout was performed and he was prepped and draped in routine sterile fashion. I was present during the entire case, please see Dr. Murphy's operative report for further detail. Patient was awakened and transferred to the recovery room in stable condition. I attest to the content of the Intraoperative Record and any orders documented therein. Any exceptions are noted below.
[2017-06-24] MEDS: FENTANYL CITRATE INJ 50 MCG/1 ML 2 ML VIAL IV PRN ×2 (12:02→12:07)
[2017-06-24 12:15] VITALS: TEMP 36.7; O2SAT 97
[2017-06-24 12:42] VITALS: BP 170/99; PULSE 77
--- NOTE | 2017-06-24 12:45 | Anesthesia Progress Nt - [facility] ---
Anesthesia Post Op Note Date & Time Jun 24, 2017 at 12:45 Vital Signs Pain Intensity: 3 Vital Signs Past 12 Hours Date Time Temp Pulse Resp B/P (MAP) Pulse Ox O2 Delivery O2 Flow Rate FiO2 06/24/17 12:42 77 16 170/99 (122) 06/24/17 12:15 36.6 06/24/17 12:15 36.7 76 16 163/101 (121) 97 Room Air 06/24/17 11:53 Room Air 06/24/17 11:33 36.4 79 12 157/97 100 Diffusion Mask 4 06/24/17 09:25 36.8 87 18 164/99 (120) 99 Room Air Notes Mental Status: alert / awake / arousable, participated in evaluation Pt Amnestic to Procedure: Yes Nausea / Vomiting: adequately controlled Pain: adequately controlled Airway Patency, RR, SpO2: stable & adequate BP & HR: stable & adequate Hydration State: stable & adequate Anesthetic Complications: no major complications apparent
== END | disposition home or self-care (01) ==
LOC: X.SURG 09:13
PROVIDERS: ATTEND Physical Medicine & Rehabilitation Sports Medicine
DX: S83.241A Other tear of medial meniscus, current injury, right knee, initial encounter (principal); X58.XXXA Exposure to other specified factors, initial encounter; J82 Pulmonary eosinophilia, not elsewhere classified; I10 Essential (primary) hypertension; K21.9 Gastro-esophageal reflux disease without esophagitis; E66.9 Obesity, unspecified; Z79.899 Other long term (current) drug therapy; Z86.14 Personal history of Methicillin resistant Staphylococcus aureus infection; Z87.442 Personal history of urinary calculi